=== PATIENT | female | born 1940 | race Caucasian/White ===

== ENCOUNTER → 2017-05-29 09:45 | Outpatient (CLI) | payer MEDICARE, SELFPAY ==
--- NOTE | 2017-05-29 09:52 | MM_ITS ---
MM Dig screening mamm BI w/CAD . ORDERING PHYSICIAN : Lissett Hung COMPARISON:.: May 2016,, April TECHNIQUE: bilateral mammogram.: Standard CC and MLO images were obtained. R2 CAD reviewed. HISTORY: ITS.REASON: Screening mammogram. No new complaints. No hormones. . Previous percutaneous biopsy deep lateral right breast benign results. Noncontributory family history PATIENT AGE: 77 years GENDER: Female FINDINGS . Dense Breasts for this age patient. This does decrease sensitivity of mammography the fibrolinear elements are most evident towards the superior breast. Actually. There seems to be almost slight diffuse increased density but this may merely reflect technique today. No history of exogenous hormones noted on provided history. . RIGHT BREAST: No significant new findings in this dense slight inhomogeneous breast 2 small metallic markers at the deep right breast from previous percutaneous biopsy are again noted LEFT BREAST:. There is a area of slight increased density at the superior left breast labeled X. Is highlighted by CAD as well as noted on our visual review. This warrants additional spot images at the 12:00 left breast to further evaluate. Cc and MLO and and 90 degrees spot views recommended.. Ultrasound also suggested to further evaluate . IMPRESSION: LEFT BREAST: Additional views left breast recommended Slight additional density superior left breast with question of mild architectural irregularity. Appearance could be merely due to to overlapping shadow in this dense breast, but would recommend patient return for additional spot views of this area along with ultrasound to further evaluate. Dense breasts for this age patient, which decreases sensitivity mammography.. (No exogenous hormones listed) Right breast. Stable moderately dense inhomogeneous breast. Follow-up in one on the right adequate . BI-RADS Category: 0 Need Additional Imaging Evaluaiton . RECOMMENDED FOLLOW-UP: IMM - IMMEDIATE FOLLOW-UP RECOMMENDED Spot views left breast recommended with ultrasound suggested (A letter has been sent to the patient regarding results of the study.)
== END ==
PROVIDERS: Family Provider Nurse Practitioner; PCP Nurse Practitioner; Visit Provider Nurse Practitioner
DX: Z12.31 Encounter for screening mammogram for malignant neoplasm of breast (principal)
CPT/HCPCS: 77067

== ENCOUNTER → 2017-06-12 13:20 | Outpatient (CLI) | payer MEDICARE, SELFPAY ==
--- NOTE | 2017-06-12 13:30 | MM_ITS ---
MM Dig mamm DX unilat LT CAD, US breast LT complete COMPARISON: 220 10/17 and 05/17/2016 INDICATION: Follow-up abnormal mammogram ORDERING PHYSICIAN: Lissett Hung PATIENT AGE: 77 years TECHNIQUE: Spot compression views and left breast ultrasound FINDINGS: The area of previously described asymmetric density does appear to compress out with no discrete mass evident. There is dense fibroglandular tissue. Left breast ultrasound: General survey performed of the left breast shows no suspicious lesions. No cysts or masses evident. Unremarkable axilla IMPRESSION: No evidence of malignancy. No discrete lesions evident BI-RADS Category: 2 Benign Finding(s) RECOMMENDED FOLLOW-UP: 1YR - 1 YEAR FOLLOW-UP. Recommend correlation with physical exam in this patient with dense fibroglandular tissue. (A letter has been sent to the patient regarding results of the study.)
== END ==
PROVIDERS: Family Provider Nurse Practitioner; PCP Nurse Practitioner; Visit Provider Nurse Practitioner
DX: R92.8 Other abnormal and inconclusive findings on diagnostic imaging of breast (principal)
CPT/HCPCS: 76641; 77065

== ENCOUNTER → 2017-08-16 12:41 | Outpatient (CLI) | payer MEDICARE, SELFPAY ==
--- NOTE | 2017-08-16 12:47 | MR_ITS ---
MR knee LT wo con HISTORY: Worsening left knee pain ITS.REASON: LEFT LATERAL KNEE PAIN ORDERING PHYSICIAN: Lissett uHng PATIENT AGE: 77 years Comparison: 10/18/2016 TECHNIQUE: Standard multiplanar multiecho sequences are performed without contrast. FINDINGS: The cruciate ligaments, collateral ligaments, patellar tendon, and quadriceps tendon are intact. There is linear increased T2 signal involving the posterior horn of the medial meniscus which extends to the tibial articulating surface. This however is seen only on one image and does not meet strict MRI criteria for meniscal tear. The medial meniscus is somewhat smaller than expected and extruded medially. There is some mild artifact also on the coronal images obtained. Heart of the medial meniscus. The lateral meniscus has an unremarkable appearance. There is mild thinning of the patellar cartilage. There is decrease in the knee joint space medially and laterally with mild osteophyte formation consistent with osteoarthritis with also involvement of the patellofemoral joint. No osteonecrosis apparent. No subarticular cyst. There is a small amount of fluid in the knee joint. No fracture or bone bruise. IMPRESSION: 1. Osteoarthritis of the knee involving all 3 compartments 2. Linear increased T2 signal involving the posterior horn of medial meniscus however only on one image and does not meet the strict MRI criteria for meniscal tear.
== END ==
PROVIDERS: Family Provider Nurse Practitioner; PCP Nurse Practitioner; Visit Provider Nurse Practitioner
DX: M25.562 Pain in left knee (principal)
CPT/HCPCS: 73721

== ENCOUNTER → 2017-09-06 13:09 | Outpatient (CLI) | payer MEDICARE, SELFPAY ==
--- NOTE | 2017-09-06 13:21 | XR_ITS ---
XR knee LT 4V HISTORY: ITS.REASON: left knee pain ORDERING PHYSICIAN: Eduardo Rao MD PATIENT AGE: 77 years COMPARISON: 10/18/2016 FINDINGS: Osteoarthritic changes involving the medial compartment which are mild in nature probably not significantly changed considering weightbearing and nonweightbearing exam comparison to the previous study. Minimal osteoarthritic changes involve the patellofemoral joint as well. No acute fracture or dislocation. No lytic or blastic change. IMPRESSION: Mild osteoarthritis of the left knee
--- NOTE | 2017-09-06 15:55 | XR_ITS ---
XR hip LT 2-3V w/pelvis HISTORY: ITS.REASON: left hip pain ORDERING PHYSICIAN: Eduardo Rao MD PATIENT AGE: 77 years COMPARISON: None FINDINGS: There are severe osteoarthritic changes of the left tibia with loss of joint space and subarticular cystic change. There is collapse of the femoral head with dysplastic changes and deformity. Also suspect an underlying degree of avascular necrosis. No acute fracture or dislocation. IMPRESSION: Severe osteoarthritis of the left hip with collapse of the femoral head expected underlying avascular necrosis and subarticular cystic change with dysplastic change of the femoral head
--- NOTE | 2017-09-06 15:55 | XR_ITS ---
XR hip RT 2-3V w/pelvis HISTORY: ITS.REASON: right hip pain ORDERING PHYSICIAN: Eduardo Rao MD PATIENT AGE: 77 years COMPARISON: None FINDINGS: Severe osteoarthritic changes are present with subarticular cystic changes of the dural head with mild flattening of the femoral head and mild lateral subluxation of the femoral head. Subarticular cystic change also noted involving the acetabular roof. No acute fracture or dislocation. IMPRESSION: Severe osteoarthritis of the right hip with subarticular cystic change with dysplastic changes the femoral head with mild lateral subluxation of the femoral head
== END ==
PROVIDERS: PCP Nurse Practitioner; Visit Provider Orthopaedic Surgery
DX: M25.562 Pain in left knee (principal); M25.551 Pain in right hip; M25.552 Pain in left hip
CPT/HCPCS: 73502; 73564

== ENCOUNTER → 2017-09-13 16:09 | Outpatient (CLI) | payer MEDICARE, SELFPAY ==
[2017-09-13 16:13] LABS: Microscopic, Urine URINE MICROSCOPIC (MICROSCOPIC)
[2017-09-13 17:20] LABS: Basophils # 0.1 K/mm3 (0-0.2); Basophils % 1.6 % (0.1-2.0); Eosinophils # 0.3 K/mm3 (0.0-0.4); Eosinophils % 3.8 % (0.1-12.0); Hemoglobin 13.7 g/dL (12.2-16.2); Lymphocytes # 2.7 K/mm3 (0.7-4.5); Lymphocytes % 35.9 K/mm3 (10-50); Mean Corpuscular HGB Conc 30.5 g/dL (31.8-35.4); Mean Corpuscular Hemoglobin 27.4 pg (27.0-31.2); Mean Corpuscular Volume 89.9 fl (81-99); Mean Platelet Volume 7.3 fl (7.4-10.4); Monocytes # 0.5 K/mm3 (0.1-1.0); Neutrophils % 52.5 % (37.0-80.0); Platelet Count 476 K/mm3 (142-424); Red Cell Distribution Width 12.5 % (11.5-17.5); White Blood Count 7.5 K/mm3 (4.8-10.8)
[2017-09-13 18:41] LABS: Appearance,Urine CLEAR (Clear); Bilirubin,Urine Negative (Negative); Blood, Urine Negative (Negative); Color,Urine YELLOW (Yellow); Glucose,Urine (UA) Negative (Negative); Ketones,Urine Negative (Negative); Leukocyte Esterase,Urine Negative (Negative); Nitrate,Urine Negative (Negative); Protein,Urine Negative (Negative); Urobilinogen,Urine 0.2 EU/dl (0.2)
[2017-09-13 18:46] LABS: Alanine Aminotransferase 16 U/L (12-78); Albumin Level 4.2 gm/dL (3.4-5.0); Alkaline Phosphatase 145 U/L (46-116); Anion Gap 14.7 mEq/L (5-15); Aspartate Amino Transferase 18 U/L (15-37); Bilirubin,Total 0.4 mg/dL (0.2-1.0); Blood Urea Nitrogen 26 mg/dL (7-18); Calcium 10.8 mg/dL (8.5-10.1); Carbon Dioxide 29 mmol/L (21.0-32.0); Chloride 98 mmol/L (98-107); Creatinine,Serum 1.13 mg/dL (0.55-1.02); Estimated Glomerular Filt Rate 47 ml/min (>60); GFR (African American) 57 ML/MIN (>60); Globulin 4.3 gm/dl (1.3-3.2); Glucose 88 mg/dL (74-106); Potassium 4.7 mmoL/L (3.5-5.1); Sodium 137 mmol/L (136-145); Total Protein,Serum 8.5 gm/dL (6.4-8.2)
[2017-09-13 19:34] LABS: Bacteria,Urine Trace /lpf; WBC,Urine Occasional #/hpf (0-3)
[2017-09-13 19:35] LABS: Hyaline Casts,Urine Occasional #/lpf (0)
== END ==
PROVIDERS: Visit Provider Orthopaedic Surgery
DX: M16.12 Unilateral primary osteoarthritis, left hip (principal); Z01.818 Encounter for other preprocedural examination
CPT/HCPCS: 36415; 80053; 81001; 85025; 86850; 93005

== ENCOUNTER → 2017-09-19 15:00 | Outpatient (CLI) | payer MEDICARE, SELFPAY ==
--- NOTE | 2017-09-19 15:04 | XR_ITS ---
XR chest 2V HISTORY: Shortness of air, smoker ITS.REASON: pre op ORDERING PHYSICIAN: Eduardo Rao MD PATIENT AGE: 77 years COMPARISON: None FINDINGS: Unremarkable cardiovascular structures. There is hyperinflation consistent with COPD with attenuation of the peripheral pulmonary vessels. Atelectatic or fibrotic changes present in the left lower lobe. Mild adjacent changes right shoulder. IMPRESSION: COPD with minimal left basilar atelectasis or fibrosis, no acute finding
--- NOTE | 2017-09-19 15:04 | CT_ITS ---
CT hip LT wo con INDICATION: Left hip pain, severe osteoarthritis with deformity ITS.REASON: pre operative planning ORDERING PHYSICIAN: Eduardo Rao MD PATIENT AGE: 77 years COMPARISON: 09/06/2017 TECHNIQUE: Axial images are obtained without contrast. Sagittal and coronal reformatted images are reviewed as well. All CT scans at the facility use one or more dose reduction, viz: automated exposure control; ma/kV adjustment per patient size (including targeted exams where dose is matched to indication; i.e. head); or iterative reconstruction technique. FINDINGS: There is severe loss of the joint space with osteosclerosis of the femoral head and acetabulum with subarticular cystic changes of the acetabulum and deformity of the femoral head with prominent osteophytes of the acetabulum consistent with grade 4 osteoarthritis of the left hip. There is marked thinning of the acetabular wall medially. No obvious fracture or dislocation. There is some increased soft tissue density along the inferior aspect of the hip joint which may be related to effusion or capsular thickening dysplastic changes are present of the femoral head. IMPRESSION: 1. Grade 4 osteoarthritis of the left hip with marked joint space narrowing, sclerosis and periarticular cyst formation along with deformity of the femoral head and acetabulum with prominent osteophytes of the acetabulum 2. There is associated severe thinning of the medial wall of the acetabulum but no obvious fracture. 3. Increased soft tissue density along the inferior aspect of the hip joint which may relate to fluid or capsular thickening
== END ==
PROVIDERS: Family Provider Nurse Practitioner; PCP Nurse Practitioner; Visit Provider Orthopaedic Surgery
DX: Z01.818 Encounter for other preprocedural examination (principal); M16.12 Unilateral primary osteoarthritis, left hip
CPT/HCPCS: 71046; 73700

== ENCOUNTER 2017-09-24 06:40 | Inpatient (IN) ==
--- NOTE | 2017-09-24 13:27 | Progress Note ---
[facility] Anesthesia Checklist - Patient Identification Patient Identification: Arm Band, Verbal (Name & ) - Structural Data Admitted From: Home Planned Operative Procedure/s: pattie Consent for Planned Operative Procedure(s) Verified: Yes Verified Documents: Surgical Consent, History and Physical - NPO Status Verified Time NPO: 00:00 - Chart Verification Results Verified: CBC, BMP - Additional verifications Patient : No Anesthesia Reactions: No Hx Blood Transfusions: No Blood Transfusion Reaction: No Cephalosporin Allergy: No Previous Colonoscopy: No - Cardiovascular Assessment Heart Sounds: S1 & S2 Pulse Strength: Baseline Pulse Rhythm: Regular Peripheral Edema: No - Airway Assessment C-Spine Mobility Assessed: Yes TMJ Mobility Assessed: Yes Dentition: Good Dentition - Neurological Assessment Level of Consciousness: Awake, Alert, Appropriate Hx Seizures: No Numbness or tingling in extremities: No - Anesthesia Plan Anesthesia Risk discussed: Yes Anesthesia Plan: Verified ASA Class: II Anesthesia Type: General [facility] Anesthesia HX I have reviewed the patient's past medical history: Yes Medical History: Reports:: Hypertension Denies:: Cancer, Diabetes Mellitus Type 1, Diabetes Mellitus Type 2, Internal Pacemaker, MRSA, Seizures Other Medical History: Reports: Arthritis, Cataracts, Hypothyroidism. Denies: Blood Transfusion Reaction Laterality Cases: Bilateral: Breast Biopsy, Cataract Other Surgeries: Yes: Cholecystectomy, Hysterectomy-Partial. No: Pacemaker Amputation: No Fractures: No *Family Hx:: Heart Attack, Hyperlipidemia, Hypertension
--- NOTE | 2017-09-24 13:29 | Progress Note ---
[facility] Anesthesia Record Part I Intake, IV Amount: 1,500 Estimated blood loss (mL): 300 Urine output (mL): 200 Blood Products used (#): none Blood Pressure: 129/65 SaO2: 97 Pulse Rate: 66 Respiratory Rate: 18 Temperature: 97.5 F Patient is:: Drowsy, Stable Stable to PACU at:: 13:21
--- NOTE | 2017-09-24 13:30 | Progress Note ---
[facility] Anesthesia Record Part II Discharge Time: 14:01 Destination: Medical Surgical Department PACU nurse assessment reviewed?: Yes Patient Condition:: Good Anesthesia Complications:: None
--- NOTE | 2017-09-24 14:19 | Operative Note ---
Date of procedure: 09/24/17 Pre-op Diagnosis:: 1. Severe end-stage degenerative joint disease, LEFT hip 2. Protrusio acetabulum, LEFT hip Post-op Diagnosis:: 1. Severe end-stage degenerative joint disease, LEFT hip 2. Protrusio acetabulum, LEFT hip Procedure performed:: 1. Primary uncemented total hip arthroplasty, LEFT hip 2. Autologous impaction bone grafting acetabulum, LEFT hip Surgeon:: Eduardo Rao MD Scenario Writer(s):: Dr. Corado; Dr. Corado's assistance was needed and required given the difficulty and complexity of the procedure. ASSISTANT PROFESSOR OF PSYCHOLOGY:: Isak Cox Anesthesia: GETA, spinal Estimated blood loss (mL): 300 Clinical Note:: Patient is a 77-year-old female with severe end-stage bilateral hip arthritis with more severe changes in her left hip with marked destruction of the joint surfaces on x-ray. A preoperative left hip CT scan showed severe joint destruction with thinning of the medial wall and mild protrusio acetabuli of the left hip. Symptomatically she has has been having significant left thigh and left knee pain for several months but very little hip pain. In fact I have seen her for the first time in the office few weeks ago following referral by her primary care physician for her left knee pain. Following evaluation at that time we have noticed that she has severe deformities and stiffness in both hip joints secondary to advanced degenerative arthritis and the left knee pain is in fact referred pain from her left hip arthritis. Consequently she had very limited mobility of her hip joints and could not even lie down flat. She mainly has pain over the anterolateral lateral aspect of the left knee and lower left thigh. She has been taking tramadol and as needed NSAIDs without much benefit. She also takes hemp oil to help her with sleep. She says he can hardly walk a few yards without support and had to stop frequently because of the thigh/knee pain and stiffness in her hips. She reports sleep disturbance and difficulty with activities of daily living including caring for her feet, dressing and undressing and putting socks and shoes on. She says she cannot lie flat on the bed because of the severe stiffness in both hip joints. Her symptoms are worse in cold weather and also aggravated with walking, weightbearing and climbing stairs. She uses a cane and walker as needed to walk at home. Her mobility was restricted that she in fact came to the office in a wheelchair. The deformity and stiffness in her hip joints is such that she is a high risk for falls lately during her self if untreated. She reports some relief using walking aids and at the time of office evaluation was not able to walk without support. No history of any distal tingling or numbness. No history of any radicular symptoms. She also reported that her left leg feels shorter than the right. Following evaluation during her office visit, we have discussed the management options for her with the patient and her family. Given the pain, stiffness, severe arthritis and destruction of the joint surfaces, I have recommended a left total hip arthroplasty to begin with. Following review of the CT scan, I have also discussed about autologous impaction bone grafting for the acetabulum. Following consultation with the family members patient decided to proceed with surgery. The most suitable option for her left hip at this stage would be a total hip arthroplasty which is clinically indicated as well as necessary to effectively manage her left hip to relieve pain and the help prevent the disability and risk of falls. It is very likely that she would also need a right total hip arthroplasty in the not so distant future. Operative findings:: Intraoperatively, end-stage osteoarthritis of the hip joint was noted. The femoral head was grossly arthritic and misshapen and osteophytes were noted on both the acetabulum and the femoral head. There was mild degree of protrusio acetabulum and the hip joint could not be dislocated before osteotomizing the femoral neck. We in fact had to remove the femoral head piecemeal after osteotomizing the femoral neck. There was severe dysplasia/erosion of the acetabulum with central and superior migration of the femoral head. There was destruction and thinning of the medial wall but the medial cortex was intact. There were multiple acetabular cysts. The femoral head was markedly arthritic with sclerosis, subchondral cysts and the articular surface was noted to be markedly eroded. The capsule was thickened and extensive adhesions were noted. The hip joint was very stiff and range of motion was markedly decreased. The overall bone quality was good for her age. Operative note:: On the day of the procedure the patient and family were met in the preoperative area and the patient was positively identified. A physical examination was performed and documented. The operative site was appropriately marked and initialed by me. I again reviewed the diagnosis, natural history and management options in detail including both nonsurgical and surgical. We discussed the proposed surgery, risks and benefits and alternatives in detail. I also discussed the CT scan findings with the patient and her family. Given the degree of acetabular destruction with protrusio acetabulum, I told the patient and her family that, I am planning on performing impaction bone grafting of the acetabulum. I have told him that we will be using the autologous graft obtained from from the reamings as well as from the femoral head and neck. The complications discussed include but are not limited to infection, injury to nerves, blood vessels and tendons, perforation of the cortices, DVT and PE, fracture, limb length inequality, dislocation, implant malpositioning, implant failure, squeaking, loosening, acetabular wear, osteolysis, periprosthetic femur fracture, heterotopic ossification, abductor weakness and limp, incomplete relief of pain, likely need for further surgery in future including revision, anesthetic complications including heart attack, stroke and even . We also discussed the postoperative recovery and rehabilitation. Patient understood the risks, agreed to proceed with surgery, signed the consent form and no guarantees or assurances were given or implied. The patient was brought to the operating room and a long-acting spinal and general anesthesia was administered by the flight deck officer. The patient was then positioned in the RIGHT lateral decubitus position with the LEFT hip facing up. We used Wixon hip positioner for this. All the bony prominences were appropriately padded. The LEFT hip was then prepped with isopropyl alcohol followed by chlorhexidine and draped in the usual sterile fashion. The entire operative team wore isolation suits and the Operating Room traffic was controlled. The skin incision was marked for a posterior approach to the hip joint. The perineum and the operative site were sealed off with Ioban drape. A preprocedure timeout was performed as per hospital protocol identifying the patient, correct surgery and correct site. Administration of 2 g of prophylactic IV Ancef was confirmed with the anesthetic team. Before completion of the procedure one more gram of IV Ancef was administered as the operating time was over 2 hours. We have also administered 1g of IV tranexamic acid just before the incision and another gram at the time of wound closure, to reduce the perioperative bleeding. A posterior approach was used to the LEFT hip joint. The skin incision was made centering over the posterior part of the greater trochanter extending posteriorly in a curved fashion across the buttock. An electrocautery was used for hemostasis. The dissection was carried through the subcutaneous tissue down to the fascia jana. The fascia jana and gluteus fascia were split in line with the skin incision and a Charnley retractor was placed. The trochanteric bursa was then removed with blunt dissection. The sciatic nerve was palpated and kept out of harm's way throughout the rest of the procedure. The hip joint was internally rotated and the fat over the short external rotators was cleared with a sponge. The short external rotator muscles were identified, tag stitches were placed near their insertion and they were divided close to the trochanter with electrocautery. This exposed the joint capsule which was opened in a T-shaped incision after tag stitches were placed to both the leaves of the capsule. Given the marked destruction of the femoral head and extensive osteophyte formation, we could not dislocate the hip joint at this stage. Therefore the neck was osteotomized with an oscillating saw. The femoral cutting guide was used to demarcate the appropriate level of the neck cut. We still could not remove remove the femoral head from the acetabulum. Therefore, we osteotomized the femoral head into multiple pieces and removed it piecemeal. Extensive osteophyte formation was noted around the femoral head and acetabulum. The femoral head which was removed piecemeal was saved on the back table for later use for grafting of the acetabulum. We then placed anterior and posterior Cobra retractors and proceeded to prepare the acetabulum. The soft tissue contents of the acetabulum including the ligamentum teres and the labrum were removed. We noticed superior and medial erosion of the acetabulum and multiple cyst formation. The acetabular cysts were curetted out. We then proceeded to reaming the acetabulum. Given the thinning of the medial wall, we decided not to medialize the acetabulum anymore and started our reaming with a size 50 reamer. We then proceeded with reaming up to size 54 for a size 54 revision acetabular shell. We choose the revision acetabular shell for superior bone integration and availability of multiple screw hole options. Following appropriate reaming, we used a size 54 cup trial which could be seated firmly and was noted to be stable. We then removed the trial shell and proceeded with bone grafting of the acetabulum. For this purpose, we used the acetabular reamings as well as cancellous bone graft obtained from the femoral head and neck. This was morselized on the back table and placed into the acetabular cavity and impacted into place with reverse reaming using a 53 mm reamer. We then placed a size 54 definitive acetabular revision shell at approximately 45 degrees inclination and 15 degrees of anteversion. The press-fit fixation was quite solid; however, we have decided to supplement the fixation of the cup with screws. Using the flexible drill, we placed a total of 3, 6.5 mm screws into the posterior superior and posterior inferior quadrants. We then placed the metal liner into the shell and impacted it into place. We then placed a Ray-Anyi gauze in the acetabulum and proceeded to prepare the proximal femur. We had to proceed carefully with this part of the procedure given the marked stiffness of her hip joint. After removing the soft tissue from the medial aspect of the greater trochanter, a box osteotome was used to remove the bone from the proximal femur. A canal entry reamer was then used to open the femoral canal paying close attention to keep the reamer in a lateral position. Next we used the lateralizing drill. Next we performed femoral broaching starting with a small broach, making sure to lateralize the placement and maintain 15-20 degrees of femoral anteversion. The broaching was continued sequentially up to size 5 broach. We found this to be a very good fit without any rocking. We then performed a trial reduction using a size 5 broach, 132 angle neck and 0 mm head. We could not reduce the hip with these trials. Then we tried with a -4 mm head but still could not reduce the hip. We again tried with 127 ankle neck and -4 mm head. Even with these trials, the hip could not be reduced. At this stage, we decided to shorten the neck by few millimeters. We recut the femoral neck a couple of millimeters down and re-broached with the size 5 broach. We then trialed with a 127 ankle neck -4 mm head; with these trials in place, we could reduce the hip into place. The hip was then taken through range of motion and tested in adduction, internal and external rotation as well as with a shuck and posteriorly directed force on a flexed hip. We placed the hip at 90 degrees of flexion and then we could internally rotate to 45 degrees with no evidence of instability. Also in the sleep position of approximately 20 degrees of adduction and internal rotation of 40 degrees the hip was still stable. We also noted that the limb lengths were equal with these components. As the hip was noted to be very stable with these trial components throughout the range of motion, we decided on this as our final construct. We then finished the preparation of the proximal femur with a calcar reamer. Next the trial components were removed and the femoral canal was irrigated with the pulse lavage and suctioned out. The definitive femoral stem was then placed and seated to the appropriate level. This gave us a very good fit without any play whatsoever. We then irrigated and dried the Boswell taper and placed the definitive MDM femoral head assembly on the stem and tapped into place. The Ray- Anyi gauze was removed from the acetabulum and hip joint irrigated with the pulse lavage. The hip was then reduced and taken through range of motion and noted to be very stable. The limb length was also well corrected. The hip joint was then soaked with dilute Betadine (0.35 percent) solution for 3 minutes followed by suctioning of the solution and pulsatile lavage with the 1 L of normal saline. At this point, I also injected the capsule and soft tissue with the local anesthetic cocktail (0.5 percent bupivacaine 200 mg +10 mg of morphine +600 g of epinephrine +750 mg of cefuroxime diluted in normal saline to make up a total volume of 120 mL). The hip joint was again thoroughly irrigated with the pulse lavage and good hemostasis was confirmed before proceeding with wound closure. The capsule was closed with #1 Vicryl sutures followed by the reattachment of the external rotators to the greater trochanter with #1 Vicryl sutures. Next the fascia jana and gluteus fascia were closed with #1 Vicryl sutures. The wound was then finally irrigated with pulse lavage and suctioned dry. Next the subcutaneous tissue was closed with 2-0 Vicryl sutures. The skin was closed with subcuticular 4-0 Monocryl sutures, Dermabond and Steri-Strips. Sterile dressings were applied consisting of Xeroform, 4 x 4 and ABDs and secured in place with adhesive tape. No drains were placed. The patient was then transferred from the operating table onto the bed. The leg lengths were again checked in supine position and noted to be equal. An abduction foam was placed between the legs. The patient was then reversed from the anesthetic and transported to the postoperative recovery area in a stable condition. Patient tolerated the procedure well and there were no immediate complications. The swab, needle and instrument counts were correct according to the scrub team at the end of the procedure. Portable x-rays of the pelvis AP view and lateral view of the LEFT hip were obtained in the recovery area which showed satisfactory placement of the components and no evident complications. Postoperatively, institute and continue standard precautions for a posterior hip approach. Patient can be mobilized weightbearing as tolerated with the help of physical therapy and commence standard physical therapy for a posterior approach primary total hip arthroplasty on the first postoperative day. Implant: The following Vostu implants were used- Julianna Accolade 2 press-fit femoral stem, 127 degree neck angle, size 5 Trident titanium hemispherical shell, 54 mm 42 mm inner diameter MDM cementless liner Mosque ADM/MDM X3 insert 28/48, size 42 E Biolox delta ceramic V 40 femoral head, size 28 mm x -4 mm neck length Mosque gap plate screws (3)- 6.5 mm x 20 mm 2, 6.5 mm x 25 mm 1 Industry retail sales representative: Prosper Bautista from [employer]. Condition: stable Disposition: floor Specimens:: None Complications:: None
--- NOTE | 2017-09-24 15:08 | Pharmacy Consult Notes ---
[facility] Pharmacy VTE Monitoring - Patient Demographics Admission date: 09/24/17 Report Date: 09/24/17 Time: 15:07 Allergies/Adverse Reactions: Patient Allergies No Known Allergies Allergy (Verified 09/06/17 14:05) Height: 1.6 m Weight: 60.951 kg - VTE Risk Was VTE Risk Assessment Performed: Yes VTE Score: 4 VTE Risk Level: Low Risk - Prophylaxis VTE Prophylaxis Ordered?: Yes Types of VTE Prophylaxis: IPCS Knee High Location of Applied Device: Bilateral Lower Extremeties - VTE Diagnosis Confirmed Treatment or plan recommended: Continue Current Treatment
--- NOTE | 2017-09-24 17:06 | Consult Report ---
*Admission Date: 09/24/17 *Chief complaint: Medical management, postop right hip replacement *History of present illness: 77-year-old female who is postop left hip replacement and I have been consulted for medical management of patient's hypertension, hypothyroid. Currently she is doing well postoperatively and family has pointed out that the patient has been talking nonstop since having surgery which they believe is a side effect of some of the medications she is received either during or after surgery. [facility] [place] History I have reviewed the patient's past medical history: Yes Medical History: Reports:: Hypertension Denies:: Cancer, Diabetes Mellitus Type 1, Diabetes Mellitus Type 2, Internal Pacemaker, MRSA, Seizures Other Medical History: Reports: Arthritis, Cataracts, Hypothyroidism. Denies: Blood Transfusion Reaction Laterality Cases: Bilateral: Breast Biopsy, Cataract Other Surgeries: Yes: Cholecystectomy, Hysterectomy-Partial. No: Pacemaker Amputation: No Fractures: No - *Social History Educational Level: Attended Grade School Smoking Status: Current some day smoker Tobacco Type: cigarettes Alcohol Intake: never Occupational Status: retired Housing: house - Psychiatric History Expresses thoughts of harming self/others: None Suicide Plan Description: No Plan *Family Hx:: Heart Attack, Hyperlipidemia, Hypertension Review of Systems - Review of Systems Review of systems:: pertinent systems reviewed and negative unless documented below Meds Home Medications Medication Instructions Recorded Confirmed Type aspirin 325 mg tablet 325 mg PO BID 09/06/17 09/24/17 History calcium carbonate 500 mg (1,250 1 tab PO BID 09/06/17 09/24/17 History mg)-vitamin D3 200 unit tablet levothyroxine 88 mcg capsule 88 mcg PO DAILY 09/06/17 09/24/17 History lisinopril 5 mg tablet 5 mg PO DAILY 09/06/17 09/24/17 History tramadol 50 mg tablet 50 mg PO Q6H 09/06/17 09/24/17 History triamterene 37.5 1 tab PO DAILY 09/06/17 09/24/17 History mg-hydrochlorothiazide 25 mg tablet Ferrous Sulfate 325 mg PO BID 09/21/17 09/24/17 History Allergies Allergy/AdvReac Type Severity Reaction Status Date / Time No Known Allergies Allergy Verified 09/06/17 14:05 Exam Vital signs and Labs for Last 24 Hours: Temp Pulse Resp BP Pulse Ox 98.0 F 68 18 93/54 94 L 09/24/17 16:15 09/24/17 16:15 09/24/17 16:15 09/24/17 16:15 09/24/17 16:15 Laboratory Results - last 24 hr 09/24/17 09:30: Urine Color Yellow, Urine Appearance Clear, Urine pH 7.0, Ur Specific [place] 1.010, Urine Protein Negative, Urine Glucose (UA) Negative, Urine Ketones Negative, Urine Blood Negative, Urine Nitrate Negative, Urine Bilirubin Negative, Urine Urobilinogen 0.2, Ur Leukocyte Esterase Negative, Urine WBC Occasional, Ur Squamous Epith Cells Occasional I & O for Last 24 hours: Intake & Output 09/22/17 09/23/17 09/24/17 09/25/17 11:59 11:59 11:59 11:59 Intake Total 1859 Balance 1859 Weight 140 lb 134 lb 6 oz - Constitutional no acute distress - *Routine HEENT Exam Head: Present: normocephalic Eye: Present: PERRL ENT: Present: mucous membranes moist - *Routine Respiratory Exam Present: CTA bilaterally - *Routine Cardiovascular Exam Present: RRR. Absent: murmur, gallop Internal Medicine - CN: Reslt - Labs CBC & Chem 7: 09/26/17 05:44 09/26/17 05:44 Labs: Urine 09/24/17 Range/Units 09:30 Urine Color Yellow (Yellow) Urine Appearance Clear (Clear) Urine pH 7.0 (5.0-8.5) Ur Specific [place] 1.010 (1.005-1.030) Urine Protein Negative (Negative) Urine Glucose (UA) Negative (Negative) Assessment and Plan (1) Hypertension Current visit: Yes Status: Acute Category: Medical Code(s): I10 - Essential (primary) hypertension (2) Hypothyroidism Current visit: Yes Status: Acute Category: Medical Code(s): E03.9 - Hypothyroidism, unspecified (3) History of total left hip arthroplasty Current visit: Yes Status: Acute Category: Surgical Code(s): Z96.642 - Presence of left artificial hip joint (4) Primary osteoarthritis of left hip Current visit: Yes Status: Chronic Category: Medical Code(s): M16.12 - Unilateral primary osteoarthritis, left hip - Assessment and plan all Dx Assessment and Plan for all problems:: 1. Postoperative care per Dr. Rao's instructions 2. Home medications
[2017-09-25 06:05] LABS: Basophils # 0.1 K/mm3 (0-0.2); Basophils % 0.6 % (0.1-2.0); Eosinophils # 0.1 K/mm3 (0.0-0.4); Eosinophils % 1.5 % (0.1-12.0); Hematocrit 32.3 % (37.0-47.0); Hemoglobin 9.9 g/dL (12.2-16.2); Lymphocytes # 1.8 K/mm3 (0.7-4.5); Lymphocytes % 24.1 K/mm3 (10-50); Mean Corpuscular HGB Conc 30.5 g/dL (31.8-35.4); Mean Corpuscular Hemoglobin 27.6 pg (27.0-31.2); Mean Corpuscular Volume 90.4 fl (81-99); Mean Platelet Volume 6.9 fl (7.4-10.4); Monocytes # 0.5 K/mm3 (0.1-1.0); Monocytes % 6.5 % (1.7-9.3); Neutrophils % 67.3 % (37.0-80.0); Platelet Count 285 K/mm3 (142-424); Red Blood Count 3.58 M/mm3 (4.20-5.40); Red Cell Distribution Width 12.8 % (11.5-17.5); White Blood Count 7.4 K/mm3 (4.8-10.8)
[2017-09-25 06:13] LABS: Anion Gap 9.3 mEq/L (5-15); Calcium 8.8 mg/dL (8.5-10.1); Potassium 4.3 mmoL/L (3.5-5.1)
--- NOTE | 2017-09-25 11:01 | Progress Note ---
Subjective Date: 09/08/17 Time: 09:30 Principal diagnosis: Status post total hip arthroplasty, left Interval history: Patient is status post LEFT total hip arthroplasty post op day #1. Patient is sitting out in the chair. Says is doing well and reports no problems. Patient has minimal pain and says it's well-controlled with medication. No history of any nausea or vomiting. No history of any cough, chest pain, shortness of breath or palpitations. Patient says she is eating and drinking well. No history of any distal tingling or numbness. PN: Obj Ex Vital signs: Temp Pulse Resp BP Pulse Ox 98.5 F 77 18 105/56 98 09/25/17 07:52 09/25/17 07:52 09/25/17 07:52 09/25/17 07:52 09/25/17 08:55 Narrative: Laboratory Results - last 24 hr 09/24/17 09:30: Urine Color Yellow, Urine Appearance Clear, Urine pH 7.0, Ur Specific [place] 1.010, Urine Protein Negative, Urine Glucose (UA) Negative, Urine Ketones Negative, Urine Blood Negative, Urine Nitrate Negative, Urine Bilirubin Negative, Urine Urobilinogen 0.2, Ur Leukocyte Esterase Negative, Urine WBC Occasional, Ur Squamous Epith Cells Occasional 09/25/17 05:40: WBC 7.4, RBC 3.58 L, Hgb 9.9 L, Hct 32.3 L, MCV 90.4, MCH 27.6, MCHC 30.5 L, RDW 12.8, Plt Count 285, MPV 6.9 L, Neut % (Auto) 67.3, Lymph % ( Auto) 24.1, [place] % (Auto) 6.5, Eos % (Auto) 1.5, Baso % (Auto) 0.6, Neut # (Auto ) 5.0, Lymph # (Auto) 1.8, [place] # (Auto) 0.5, Eos # (Auto) 0.1, Baso # (Auto) 0.1 09/25/17 05:40: Sodium 138, Potassium 4.3, Chloride 106, Carbon Dioxide 27, Anion Gap 9.3, BUN 24 H, Creatinine 1.55 H, Estimated Creat Clear 30, Estimated GFR 33 L, Est GFR ( Amer) 39 L, Glucose 102, Calcium 8.8 Intake & Output 09/22/17 09/23/17 09/24/17 09/25/17 11:59 11:59 11:59 11:59 Intake Total 5102 / 5102 Output Total 400 / 400 Balance 4702 / 4702 Weight 140 lb 134 lb 6 oz Exam General appearance: alert, active, awake, no acute distress Cardiovascular: regular rate & rhythm, normal peripheral pulses, Respiratory: clear to auscultation, normal breath sounds ABD: normal exam; soft and non tender Genitourinary: Catheter in situ. Neuro: alert, no deficit, oriented x 3 Psych: normal mood and affect On examination of the lower extremities the limb lengths are equal. Thigh and calf are soft and nontender. On examination of the LEFT hip the dressings are clean, dry and intact. No evidence of any infection or other complications noted. Distal pulses are 2+. Distal sensation is intact to light touch throughout. No motor deficits noted distally. Imaging: Postoperative check x-ray reviewed along with the radiologist report. The x-ray shows mixed left total hip arthroplasty components in satisfactory position, and alignment. No radiological complications noted. - Urinary Catheter Management Auguste Cath placed during this visit: yes Urethral indwelling: Yes Reason for continuing: Surgical procedure Insertion date: 09/24/17 Insertion time: 09:30 Progress Note: A&P (1) History of total left hip arthroplasty Status: Acute Current Visit: Yes (2) Primary osteoarthritis of left hip Status: Chronic Current Visit: Yes (3) Hypertension Status: Acute Current Visit: Yes (4) Hypothyroidism Status: Acute Current Visit: Yes (5) Osteoarthritis of right hip Status: Chronic Current Visit: Yes Assessment and Plan for All Diagnoses:: Post op patient plan: I reviewed the clinical and operative findings and procedure performed with the patient and her son. I have given them a copy of the postoperative hip x-ray. Patient is doing very well and reports no problems. Patient is mobilizing well weightbearing as tolerated on the LEFT side using a walker with help of physical therapy and to continue the same. Continue DVT prophylaxis. Continue abduction pillow when in bed and continue standard precautions for the posterior approach hip replacement. 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 Discontinue the urinary catheter. Case management consult regarding discharge planning. Medical management as per Dr. Goodson.
[2017-09-26 06:36] LABS: Basophils # 0.1 K/mm3 (0-0.2); Basophils % 0.7 % (0.1-2.0); Eosinophils # 0.2 K/mm3 (0.0-0.4); Eosinophils % 2.7 % (0.1-12.0); Hematocrit 31.5 % (37.0-47.0); Hemoglobin 9.8 g/dL (12.2-16.2); Lymphocytes # 1.3 K/mm3 (0.7-4.5); Lymphocytes % 17.1 K/mm3 (10-50); Mean Corpuscular HGB Conc 31.1 g/dL (31.8-35.4); Mean Corpuscular Hemoglobin 28.2 pg (27.0-31.2); Mean Corpuscular Volume 90.7 fl (81-99); Monocytes # 0.5 K/mm3 (0.1-1.0); Neutrophils # 5.8 K/mm3 (1.8-7.8); Neutrophils % 73.5 % (37.0-80.0); Platelet Count 292 K/mm3 (142-424); Red Blood Count 3.47 M/mm3 (4.20-5.40); Red Cell Distribution Width 12.8 % (11.5-17.5); White Blood Count 7.9 K/mm3 (4.8-10.8)
[2017-09-26 07:15] LABS: Calcium 9.1 mg/dL (8.5-10.1)
--- NOTE | 2017-09-26 07:30 | Progress Note ---
Internal Medicine - PN: Subj *Date: 09/26/17 *Time: 07:28 Interval history: Patient has no complaints this morning. Apparently yesterday evening family was concerned a possible strokelike symptoms due to some slurred speech what had occurred after she had received pain medication. Nursing assessment was performed and no abnormality was found. Patient received 10 mg of hydrocodone prior to onset of the symptoms. This morning her only complaint and worry is pain in her left hip. Exam Vital signs and Labs for Last 24 Hours: Temp Pulse Resp BP Pulse Ox 98.5 F 72 18 122/50 98 09/26/17 04:00 09/26/17 04:00 09/26/17 04:00 09/26/17 04:00 09/26/17 04:00 Laboratory Results - last 24 hr 09/26/17 05:44: WBC 7.9, RBC 3.47 L, Hgb 9.8 L, Hct 31.5 L, MCV 90.7, MCH 28.2, MCHC 31.1 L, RDW 12.8, Plt Count 292, MPV 7.0 L, Neut % (Auto) 73.5, Lymph % ( Auto) 17.1, [place] % (Auto) 6.0, Eos % (Auto) 2.7, Baso % (Auto) 0.7, Neut # (Auto ) 5.8, Lymph # (Auto) 1.3, [place] # (Auto) 0.5, Eos # (Auto) 0.2, Baso # (Auto) 0.1 09/26/17 05:44: Sodium 136, Potassium 4.0, Chloride 104, Carbon Dioxide 26, Anion Gap 10.0, BUN 27 H, Creatinine 1.15 H D, Estimated Creat Clear 40, Estimated GFR 46 L, Est GFR ( Amer) 56 L D, Glucose 102, Calcium 9.1 I & O for Last 24 hours: Intake & Output 09/23/17 09/24/17 09/25/17 09/26/17 11:59 11:59 11:59 11:59 Intake Total 5102 / 5102 660 / 660 Output Total 400 / 400 500 / 500 Balance 4702 / 4702 160 / 160 Weight 134 lb 6 oz Assessment and Plan (1) History of total left hip arthroplasty Current visit: Yes Status: Acute Category: Surgical Code(s): Z96.642 - Presence of left artificial hip joint (2) Primary osteoarthritis of left hip Current visit: Yes Status: Chronic Category: Medical Code(s): M16.12 - Unilateral primary osteoarthritis, left hip (3) Hypertension Current visit: Yes Status: Acute Category: Medical Code(s): I10 - Essential (primary) hypertension (4) Hypothyroidism Current visit: Yes Status: Acute Category: Medical Code(s): E03.9 - Hypothyroidism, unspecified (5) Osteoarthritis of right hip Current visit: Yes Status: Chronic Category: Medical Code(s): M16.11 - Unilateral primary osteoarthritis, right hip - Assessment and plan all Dx Assessment and Plan for all problems:: Patient is medically stable and from my standpoint can be discharged to [facility] I have addressed the patient's discharge medications and have written a prescription for hydrocodone 7.5 mg to be used every 4 hours as needed for pain. Patient will follow up with orthopedic surgeon per his instructions
--- NOTE | 2017-09-26 11:41 | Discharge Summary ---
General - General Admission date:: 09/24/17 Discharge date: 09/26/17 HPI HPI: Patient is a 77-year-old female with severe end-stage osteoarthritis of her LEFT hip and was admitted to the hospital following an uncomplicated primary left total hip arthroplasty with impaction bone grafting of the acetabulum on . She has been having progressively worsening left thigh and knee pain associated with severe stiffness of both hip joints. Her imaging showed severe degenerative arthritis of both hip joints with the left hip showing more advanced changes including gross destruction of the femoral head and acetabulum as well as mild degree of protrusio acetabulum. Patient also has advanced degenerative changes in the right hip but reports no pain in the right hip or right knee. However, both hip joints are markedly stiff with flexion contractures. Patient takes tramadol and as needed NSAIDs as well as home remedies like hemp oil without much benefit. She says she can hardly walk a few yards without support. She uses a walker to to mobilize indoors. She reports night pain and sleep disturbance as well as difficulty with activities of daily living including caring for her feet, dressing and undressing and putting socks and shoes on. She also reports severe stiffness in her left hip. She also reports that her symptoms are worse in cold weather and also aggravated with walking, weightbearing and climbing stairs. Patient reports some relief using walking aids and at the moment she mostly walks with a walker. No history of any distal tingling or numbness. No history of any radicular symptoms. She also reports that her left leg feels shorter than the right. Patient says she almost fell down a couple of times because of the hip stiffness but fortunately did not sustain any injuries or fractures. The hip arthritis is causing severe referred pain to the left thigh and knee and significant disability. The pain also is affecting her lifestyle, activities of daily living and significantly impacting her sleep. She is also at a high risk of falls from the hip arthritis. A total hip arthroplasty is indicated to relieve pain and the help prevent the disability and risk of falls. His past medical history includes hypertension and hypothyroidism. Hospital Course Hospital Course: Following uneventful left primary total hip arthroplasty patient was admitted to the inpatient lim and has progressed well. Her postoperative check x-ray was satisfactory with good alignment and fixation of the components. She was advised to ambulate weightbearing as tolerated on the LEFT side. Patient managed this very well using the walker. Her is pain is well controlled with oral analgesics. Her surgical incision is clean and dry without any active discharge or signs of infection. The distal neurovascular status is intact. No clinical evidence of DVT. Patient is eating and drinking well without any problems. Patient is medically stable at the time of discharge and was medically cleared for discharge by Dr. Goodson. The dressings were changed on the second postoperative day and the wound is healthy and healing well. No signs of any erythema, induration or discharge. Patient was restarted on her preoperative aspirin which is adequate for DVT prophylaxis after surgery. Patient was cleared for discharge by physical therapy. On the day of discharge, the wound is clean and dry. The patient's vital signs have been stable throughout and she is afebrile at the time of discharge. She is being discharged to a alf facility for postoperative rehab. Condition at discharge: improved and stable. Treatments and Procedures: Total hip arthroplasty, left hip; date of surgery Objective Vital signs: Temp Pulse Resp BP Pulse Ox 97.2 F L 82 18 107/41 99 09/26/17 07:59 09/26/17 07:59 09/26/17 07:59 09/26/17 07:59 09/26/17 07:59 no acute distress - *Routine HEENT Exam Head: Present: normocephalic Eye: Present: EOMI, PERRL ENT: Present: mucous membranes moist - *Routine Neck Exam Present: supple, trachea midline - *Routine Respiratory Exam Present: CTA bilaterally - *Routine Cardiovascular Exam Present: RRR, Normal S1, Normal S2 - *Routine Abdominal Exam Present: soft, normoactive bowel sounds - *Routine Extremities Exam Comments: On examination of the lower extremities the limb lengths are equal. Thigh and calf are soft and nontender. On examination of the LEFT hip the dressings are clean, dry and intact. The dressings were changed by me. There is no soakage of the dressings. The wound looks clean and healthy. No evidence of any infection or other complications noted. Distal pulses are 2+. Distal sensation is intact. She demonstrates good range of knee, foot and ankle movements. - *Routine Skin Exam Present: intact, normal turgor - *Routine Neurological Exam Present: alert, oriented X3, CN II-XII intact, moving all extremities, normal tone, normal speech - Routine Psychiatric Exam Present: normal affect, cooperative Results Labs on day of discharge: Labs from last 24 hours 09/26/17 09/26/17 05:44 05:44 WBC 7.9 RBC 3.47 L Hgb 9.8 L Hct 31.5 L MCV 90.7 MCH 28.2 MCHC 31.1 L RDW 12.8 Plt Count 292 MPV 7.0 L Neut % (Auto) 73.5 Lymph % (Auto) 17.1 [place] % (Auto) 6.0 Eos % (Auto) 2.7 Baso % (Auto) 0.7 Neut # (Auto) 5.8 Lymph # (Auto) 1.3 [place] # (Auto) 0.5 Eos # (Auto) 0.2 Baso # (Auto) 0.1 Sodium 136 Potassium 4.0 Chloride 104 Carbon Dioxide 26 Anion Gap 10.0 BUN 27 H Creatinine 1.15 H D Estimated Creat Clear 40 Estimated GFR 46 L Est GFR ( Amer) 56 L D Glucose 102 Calcium 9.1 DS: Diagnosis - Discharge Diagnosis (1) Hypertension Status: Acute (2) Hypothyroidism Status: Acute (3) History of total left hip arthroplasty Status: Acute (4) Primary osteoarthritis of left hip Status: Chronic Discharge Plan - Patient Discharge Instructions ACTIVITY: Continue current activity, Ambulate as tolerated DIET: continue same diet Patient Instructions: DI for Hip Replacement - Follow up Plan Follow up with: Eduardo Rao MD [Staff Physician] - 2 weeks Disposition: [facility] Home Medications: Home Medications Medication Instructions Recorded Confirmed Type aspirin 325 mg tablet 325 mg PO DAILY 09/06/17 09/26/17 History calcium carbonate 500 mg (1,250 1 tab PO BID 09/06/17 09/24/17 History mg)-vitamin D3 200 unit tablet levothyroxine 88 mcg capsule 88 mcg PO DAILY 09/06/17 09/24/17 History lisinopril 5 mg tablet 5 mg PO DAILY 09/06/17 09/24/17 History triamterene 37.5 1 tab PO DAILY 09/06/17 09/24/17 History mg-hydrochlorothiazide 25 mg tablet Ferrous Sulfate 325 mg PO BID 09/21/17 09/24/17 History Prescriptions/Medication Reconciliation: New Hydrocodone/Acetaminophen [[place] 7.5-325 Tablet] 1 tab PO Q4HP PRN #180 tab PRN Reason: Moderate To Severe Pain Continue calcium carbonate 500 mg (1,250 mg)-vitamin D3 200 unit tablet 1 tab PO BID triamterene 37.5 mg-hydrochlorothiazide 25 mg tablet 1 tab PO DAILY aspirin 325 mg tablet 325 mg PO DAILY lisinopril 5 mg tablet 5 mg PO DAILY levothyroxine 88 mcg capsule 88 mcg PO DAILY Ferrous Sulfate 325 mg PO BID Discontinued tramadol 50 mg tablet 50 mg PO Q6H - Additional Information Additional Information: Our recommendations on discharge include physical therapy with weightbearing as tolerated and standard postoperative rehab for primary total hip replacement via posterior approach. Patient was also advised to keep the leg elevated and ice the hip on a regular basis. At this stage it is permissible to take a shower and allow the incision to get wet with shower water. After padding the area dry, the wound can be left open. Patient has absorbable sutures and Steri- Strips for wound closure. To continue mobilizing weightbearing as tolerated on the LEFT side with the walker and transition to a cane as she progresses. Standard physical therapy and postoperative precautions as for a posterior approach hip replacement. Keep the abduction wedge between the legs when patient is in bed and also during sleep for 6 weeks postop. Patient will follow up with me in the office in approximately 12-14 days for wound check and to cut the suture ends. Recommend continuation of aspirin p.o. daily for 5 weeks postop for DVT prophylaxis. Please feel free to call our office at [phone] or via the hospital border machine operator [phone] for any orthopaedic questions or concerns.
== END 2017-09-26 14:21 ==
LOC: 2ND 06:40 → EDSTATUS 08:30 → 2ND 14:34
PROVIDERS: ADMIT Orthopaedic Surgery; ATTEND Orthopaedic Surgery

== ENCOUNTER → 2017-10-11 08:51 | Outpatient (CLI) | payer MEDICARE, SELFPAY ==
--- NOTE | 2017-10-11 08:55 | XR_ITS ---
XR hip LT 2-3V w/pelvis HISTORY: Follow-up hip replacement ITS.REASON: sp LEFT total hip arthroplasty ORDERING PHYSICIAN: Eduardo Rao MD PATIENT AGE: 77 years COMPARISON: 09/24/2017 FINDINGS: Status post total left hip replacement with good alignment and no evidence of complications. Severe osteoarthritis noted of the right hip with subcortical cystic changes and osteosclerosis. Mild lateral subluxation of the femoral head on the right by approximately 8 mm. IMPRESSION: 1. Status post total left hip replacement with no radiographic evidence of complication. 2. Severe osteoarthritis of the right hip with subluxation
== END ==
PROVIDERS: PCP Family Medicine; Visit Provider Orthopaedic Surgery
DX: Z96.642 Presence of left artificial hip joint (principal)
CPT/HCPCS: 73502

== ENCOUNTER → 2017-11-22 13:22 | Outpatient (CLI) | payer MEDICARE, SELFPAY ==
--- NOTE | 2017-11-22 13:24 | XR_ITS ---
XR hip LT 2-3V w/pelvis HISTORY: Follow-up hip replacement ITS.REASON: sp left hip replacement sx 09/24/17 ORDERING PHYSICIAN: Eduardo Rao MD PATIENT AGE: 77 years COMPARISON: 10/11/2017 FINDINGS: Status post total left hip replacement with good alignment and no evidence of orthopedic complication. There is some mild heterotopic bone formation along the greater trochanter. Severe osteoarthritic changes of the right hip with subcortical cystic change and osteosclerosis and mild lateral subluxation of the femoral head once again noted. The right femoral head appears slightly more flattened IMPRESSION: 1. No change with no acute finding status post left hip replacement 2. Severe osteoarthritic changes of the right hip as described above with slight increased flattening of the femoral head
== END ==
PROVIDERS: PCP Nurse Practitioner; Visit Provider Orthopaedic Surgery
DX: M16.12 Unilateral primary osteoarthritis, left hip (principal)
CPT/HCPCS: 73502

== ENCOUNTER → 2017-11-29 15:54 | Outpatient (CLI) | payer MEDICARE, SELFPAY ==
--- NOTE | 2017-11-29 | XR_ITS ---
XR hip RT 2-3V w/pelvis HISTORY: Right hip pain ITS.REASON: PAIN ORDERING PHYSICIAN: Eduardo Rao MD PATIENT AGE: 77 years COMPARISON: 8 FINDINGS: There are severe osteoarthritic changes of the right hip with osteosclerosis and subarticular cystic change of the acetabular roof and femoral head. There is flattening of the femoral head and mild lateral subluxation of the femoral head similar to the previous exam. No acute fracture or dislocation. Prior left hip replacement. IMPRESSION: Severe osteoarthritis of the right hip with subarticular cystic changes of the femoral head and acetabulum with dysplastic changes of the femoral head and mild flattening of the femoral head along with mild lateral subluxation of the right femur
[2017-11-29 15:56] LABS: Microscopic, Urine URINE MICROSCOPIC (MICROSCOPIC)
[2017-11-29 16:48] LABS: Appearance,Urine CLOUDY (Clear); Bilirubin,Urine Negative (Negative); Blood, Urine Negative (Negative); Color,Urine YELLOW (Yellow); Glucose,Urine (UA) Negative (Negative); Ketones,Urine Negative (Negative); Leukocyte Esterase,Urine Negative (Negative); Nitrate,Urine Negative (Negative); Protein,Urine Negative (Negative); Urobilinogen,Urine 0.2 EU/dl (0.2)
[2017-11-29 18:10] LABS: Amorphous Sediment,Urine 1+ /lpf; Bacteria,Urine Trace /lpf
== END ==
PROVIDERS: PCP Family Medicine; Visit Provider Orthopaedic Surgery
DX: M16.11 Unilateral primary osteoarthritis, right hip (principal); Z96.642 Presence of left artificial hip joint
CPT/HCPCS: 36415; 73502; 81001; 86850; 93005

== ENCOUNTER → 2017-12-08 08:56 | Outpatient (CLI) | payer MEDICARE, SELFPAY | PROVIDERS: PCP Family Medicine; Visit Provider Orthopaedic Surgery | DX: Z01.818 Encounter for other preprocedural examination (principal) | CPT/HCPCS: 36415; 86850 ==

== ENCOUNTER 2017-12-10 06:08 | Inpatient (IN) ==
--- NOTE | 2017-12-10 11:41 | Progress Note ---
[facility] Anesthesia Record Part I Intake, IV Amount: 2,000 Estimated blood loss (mL): 350 Urine output (mL): 300 Blood Pressure: 110/57 SaO2: 95 Pulse Rate: 83 Respiratory Rate: 16 Temperature: 97.6 F Patient is:: Drowsy, Stable Stable to PACU at:: 11:35
--- NOTE | 2017-12-10 11:41 | Progress Note ---
[facility] Anesthesia Checklist - Patient Identification Patient Identification: Arm Band - Structural Data Admitted From: Home Planned Operative Procedure/s: right [place] Consent for Planned Operative Procedure(s) Verified: Yes Verified Documents: Surgical Consent, History and Physical - NPO Status Verified Time NPO: 00:00 - Additional verifications Anesthesia Reactions: No - Airway Assessment C-Spine Mobility Assessed: Yes (mp2) TMJ Mobility Assessed: Yes Dentition: Good Dentition - Neurological Assessment Level of Consciousness: Awake, Alert - Anesthesia Plan Anesthesia Risk discussed: Yes Anesthesia Plan: Verified ASA Class: II Anesthesia Type: Spinal (with MAC) [facility] History I have reviewed the patient's past medical history: Yes Medical History: Reports:: Hypertension Denies:: Cancer, Diabetes Mellitus Type 1, Diabetes Mellitus Type 2, Internal Pacemaker, MRSA, Seizures Other Medical History: Reports: Arthritis, Cataracts, Hypothyroidism. Denies: Blood Transfusion Reaction Laterality Cases: Left: Total Hip Replacement, Bilateral: Breast Biopsy Other Surgeries: Yes: Cholecystectomy, Hysterectomy-Partial, Other. No: Pacemaker Amputation: No Fractures: Yes - *Social History Educational Level: Completed High School Smoking Status: Former smoker Tobacco Type: cigarettes Smoking End Date: 06/09/17 Alcohol Intake: never Substance Use Type: denies use Occupational Status: retired Housing: house Household Members: none - Psychiatric History Expresses thoughts of harming self/others: None Suicide Plan Description: No Plan *Family Hx:: Heart Attack, Hyperlipidemia, Hypertension
--- NOTE | 2017-12-10 11:42 | Progress Note ---
[facility] [place] Anesthesia Record Part II Discharge Time: 12:05 Destination: 2nd floor PACU nurse assessment reviewed?: Yes Patient Condition:: Good Anesthesia Complications:: None
--- NOTE | 2017-12-10 12:07 | Operative Note ---
Date of procedure: 12/10/17 Pre-op Diagnosis:: Advanced end-stage degenerative arthritis, right hip Post-op Diagnosis:: Advanced end-stage degenerative arthritis, right hip Procedure performed:: Uncemented total hip arthroplasty, right hip Surgeon:: Eduardo Rao MD Head Rigger(s):: Dr. Corado; Dr. Corado's assistance was needed and required given the difficulty and complexity of the procedure. POULTRY BREEDER:: Derek Feeback Anesthesia: spinal Estimated blood loss (mL): 350 Clinical Note:: Patient is a 77-year-old female who has end-stage osteoarthritis of her right hip unresponsive to conservative management. The arthritis is causing severe pain and significant disability and has not responded well to conservative management. She cannot even take a few steps without pain and she is completely dependent on a Andrew frame for mobilization. The pain also is affecting her lifestyle, activities of daily living and significantly impacting her sleep. She is also at a high risk of falls from the arthritis. Her imaging shows progression of the arthritis with destruction of the femoral head as well as superolateral acetabulum. Therefore a total hip arthroplasty is indicated to relieve pain and the help prevent the disability and risk of falls. She previously had a successful left total hip arthroplasty. Operative findings:: Intraoperatively, end-stage osteoarthritis of the hip joint was noted. The femoral head was grossly arthritic and misshapen and osteophytes were noted on both the acetabulum and the femoral head. There was a dysplasia/erosion of the acetabulum with the superior migration of the femoral head. The capsule was thickened and range of motion was markedly decreased. The overall bone quality was good for her age. Operative note:: On the day of the procedure the patient and family were met in the preoperative area and the patient was positively identified. A physical examination was performed and documented. The operative site was appropriately marked and initialed by me. I again reviewed the diagnosis, natural history and management options in detail including both nonsurgical and surgical. We discussed the proposed surgery, risks and benefits and alternatives in detail. The complications discussed include but are not limited to infection, injury to nerves, blood vessels and tendons, DVT and PE, fracture, limb length inequality, dislocation, implant malpositioning, implant failure, squeaking, loosening, acetabular wear, osteolysis, periprosthetic femur fracture, heterotopic ossification, abductor weakness and limp, incomplete relief of pain, likely need for further surgery in future including revision, anesthetic complications in cluding heart attack, stroke and even . We also discussed the postoperative recovery and rehabilitation. Patient understood the risks, agreed to proceed with surgery, signed the consent form and no guarantees or assurances were given or implied. The patient was brought to the operating room and a spinal anesthesia was administered by the nurse manager. The patient was then positioned in the left lateral decubitus position with the right hip facing up. We used [employer] hip positioner for this. All the bony prominences were appropriately padded. The right hip was then prepped with isopropyl alcohol followed by chlorhexidine and draped in the usual sterile fashion. The entire operative team wore isolation suits and the Operating Room traffic was controlled. The skin incision was marked for a posterior approach to the hip joint. The perineum and the operative site were sealed off with Ioban drape. A preprocedure timeout was performed as per hospital protocol identifying the patient, correct surgery and correct site. Administration of 2 g of prophylactic IV Ancef was confirmed with the anesthetic team. Before completion of the procedure 1 more gram of IV Ancef was administered as the operating time was over 2 hours. We have also administered 1g of IV tranexamic acid just before the incision and one more gram at the time of wound closure, to reduce the bleeding. A posterior approach was used to the right hip joint. The skin incision was made centering over the posterior part of the greater trochanter extending posteriorly in a curved fashion across the buttock. An electrocautery was used for hemostasis. The dissection was carried through the subcutaneous tissue down to the fascia jana. The fascia jana and gluteus fascia were split in line with the incision and a Charnley retractor was placed. The trochanteric bursa was then removed with blunt dissection. The sciatic nerve was identified and kept out of harm's way throughout the rest of the procedure. The hip joint was internally rotated and the fat over the short external rotators was cleared with a sponge. The short external rotator muscles were identified, a tag stitch was placed near their insertion and they were d ivided close to the trochanter with electrocautery. This exposed the joint capsule which was opened in a T-shaped incision after tag stitches were placed to both the leaves of the capsule. The hip joint was then dislocated. The femoral cutting guide was used to demarcate the appropriate level of the neck cut and the neck was osteotomized with an oscillating saw. The femoral head was removed, noted to be very deformed/eroded with extensive osteophyte formation over the neck and saved on the back table for later use if needed. We then placed anterior and posterior Cobra retractors and proceeded to prepare the acetabulum. The soft tissue contents of the acetabulum including the ligamentum teres and the labrum were removed. We noticed superior erosion of the acetabulum and cyst formation. We then proceeded to reaming the acetabulum. We started off with a size 45 reamer and then proceeded with reaming up to size 54 for a size 54 revision acetabular shell. We choose the revision acetabular shell for superior bone integration and availability of multiple screw hole options. There were 2 small cystic areas in the superolateral acetabulum, which were curetted out. Following appropriate reaming, we used a size 54 cup trial which could be seated firmly and was noted to be stable. We then removed the trial shell and placed a size 54 definitive acetabular revision shell at approximately 45 degrees inclination and 20 degrees of anteversion. The press-fit fixation was quite solid; however, we have decided to supplement the fixation of the cup with acetabular screw placement. Using the flexible drill, we placed three 6.5 x 25 mm screws into the posterior superior and posterior inferior quadrants. We then placed the metal liner into the shell and impacted into place. We then placed a Ray-Anyi gauze in the acetabulum and proceeded to prepare the proximal femur. We had to proceed carefully with this part given the marked stiffness of the hip. After removing the soft tissue from the medial aspect of the greater trochanter, a box osteotome was used to remove the bone from the proximal femur. A canal entry reamer was then used to open the femoral canal paying close attention to keep the reamer in a lateral position. Next we used the lateralizing drill. Next we performed femoral broaching starting with a small broach, making sure to lateralize the placement and maintain 15-20 degrees of femoral anteversion. The broaching was continued sequentially up to size 5 broach. We found this to be a very good fit without any rocking. We then finished the preparation of the proximal femur with a calcar reamer. We then attempted a trial reduction using a size 5 broach, 132 angle neck and 0 mm head. However, we could not reduce the hip joint with these trials. We then trialed with a -4 mm head but given this was too tight. Therefore we trialed with 127 angle neck and -4 mm head. We could reduce the hip joint well with these trials. The hip was taken through range of motion and tested in adduction, internal and external rotation as well as with a shuck and posteriorly directed force on a flexed hip. We placed the hip at 90 degrees of flexion and then we could internally rotate to 45 degrees with no evidence of instability. Also in the sleep position of approximately 20 degrees of adduction and internal rotation of 40 degrees the hip was still stable. We also noted that the limb lengths were equal with these components. As the hip was noted to be very stable with these trial components throughout the range of motion, we decided on this as our final construct. Next the trial components were removed and the femoral canal was irrigated with the pulse lavage and suctioned out. The definitive femoral stem was then placed and seated to the appropriate level. This gave us a very good fit without any play whatsoever. We then irrigated and dried the Boswell taper and then placed the definitive MDM femoral head assembly on the stem and tapped into place. The Ray-Anyi was removed from the acetabulum and hip joint irrigated with the pulse lavage. The hip was then reduced and taken through range of motion and noted to be very stable. The limb length was also well c orrected. The hip joint was then soaked with dilute Betadine (0.35 percent) solution for 3 minutes followed by suctioning of the solution and pulsatile lavage with the 1 L of normal saline. At this point, I also injected the capsule and soft tissue with the local anesthetic cocktail (0.5 percent bupivacaine 200 mg +10 mg of morphine +600 g of epinephrine +750 mg of cefuroxime +30 mg of ketorolac diluted in normal saline to make up a total volume of 120 mL). The hip joint was again thoroughly irrigated with the pulse lavage and good hemostasis was confirmed before proceeding with wound closure. The capsule was closed with #1 Vicryl sutures followed by the reattachment of the external rotators to the greater trochanter with #1 Vicryl sutures. Next the fascia jana and gluteus fascia were closed with #1 Vicryl sutures. The wound was then finally irrigated with pulse lavage and suctioned dry. Next the subcutaneous tissue was closed with 2-0 Vicryl sutures. The skin was closed with subcuticular 4-0 Monocryl sutures, Dermabond and Steri-Strips. Sterile dressings were applied consisting of Xeroform, 4 x 4 and [address] secured in place with adhesive tape. No drains were placed. The patient was then transferred from the operating table onto the bed. The leg lengths were again checked in supine position and noted to be equal. An abduction foam was placed between the legs. The patient was then reversed from the anesthetic and transported to the postoperative recovery area in a stable condition. Patient tolerated the procedure well and there were no immediate complications. The swab, needle and instrument counts were correct according to the scrub team at the end of the procedure. Portable x-rays of the pelvis AP view and AP and lateral views of the right hip were obtained in the recovery area which showed satisfactory placement of the components and no evident complications. Postoperatively, institute and continue standard precautions for a posterior hip approach. Patient can be mobilized weightbearing as tolerated with the help of physical therapy and commence standard physical therapy for a posterior approach on the first postoperative day. Implants: The following [employer] implants were used- [place] Accolade 2 press-fit femoral stem, 127 degree neck angle, size 5 Trident titanium hemispherical shell, 54 mm 42 mm inner diameter MDM cementless liner Voodoo MDM X3 insert 28/48, size 42 E Biolox delta ceramic head V 40 femoral head, size 28 mm x -4 mm neck length Voodoo gap plate screw 6.5 mm x 25 mm 3 Industry cash applications representative: Prosper Bautista from [employer]. Condition: stable Disposition: floor Specimens:: None Complications:: None
--- NOTE | 2017-12-10 15:11 | Pharmacy Consult Notes ---
[facility] Pharmacy VTE Monitoring - Patient Demographics Admission date: 12/10/17 Report Date: 12/10/17 Time: 15:10 Allergies/Adverse Reactions: Patient Allergies No Known Allergies Allergy (Verified 12/07/17 11:58) Height: 1.57 m Weight: 58.967 kg - VTE Risk Was VTE Risk Assessment Performed: Yes VTE Score: 4 VTE Risk Level: Low Risk - Prophylaxis VTE Prophylaxis Ordered?: Yes Types of VTE Prophylaxis: IPCS Thigh High, Pharmacological Location of Applied Device: Bilateral Lower Extremeties Pharmacologic Type: Other (XARELTO) - VTE Diagnosis Confirmed Treatment or plan recommended: Continue Current Treatment
[2017-12-10 15:40] LABS: Hematocrit 28.4 % (37.0-47.0); Hemoglobin 9.3 g/dL (12.2-16.2)
--- NOTE | 2017-12-10 16:29 | Progress Note ---
Subjective Date: 12/10/17 Time: 15:00 Principal diagnosis: Status post total hip arthroplasty, right Interval history: Status post right total hip arthroplasty today. Patient has returned from the OR and is sleepy. Nursing staff is concerned about her blood pressure is running low. She had 1 L of normal saline since returning from the OR. She is not cleaning of any pain or discomfort. PN: Obj Ex Vital signs: Temp Pulse Resp BP Pulse Ox 98.1 F 67 18 92/41 95 12/10/17 13:50 12/10/17 13:50 12/10/17 13:50 12/10/17 13:50 12/10/17 13:50 Narrative: Laboratory Results - last 24 hr 12/10/17 06:40: Blood Type Cancelled, Antibody Screen Cancelled 12/10/17 07:46: Urine Color Yellow, Urine Appearance Clear, Urine pH 6.5, Ur Specific [place] 1.020, Urine Protein Negative, Urine Glucose (UA) Negative, Urine Ketones Negative, Urine Blood Negative, Urine Nitrate Negative, Urine Bilirubin Negative, Urine Urobilinogen 0.2, Ur Leukocyte Esterase Negative, Urine WBC Occasional, Ur Squamous Epith Cells Occasional, Urine Bacteria Trace 12/10/17 15:20: Hgb 9.3 L, Hct 28.4 L Exam General appearance: alert, awake, no acute distress ENT: Mucous membranes dry Cardiovascular: regular rate & rhythm, normal peripheral pulses Respiratory: clear to auscultation, normal breath sounds no respiratory distress noted, speaks in full sentences ABD: soft and non tender Genitourinary: Catheter in situ. Neuro: alert, drowsy, On examination of the lower extremities, she is in an abduction pillow; the limb lengths are equal. On examination of the right hip the dressings are clean, dry and intact. No soaking of dressings or any other evidence of bleeding noted. Distal pulses are 1+. Distal sensation is intact to light touch throughout. She is moving the ankle, foot and toes actively. - Urinary Catheter Management Auguste Cath placed during this visit: yes Urethral indwelling: Yes Reason for continuing: Surgical procedure Insertion date: 12/10/17 Insertion time: 08:00 Progress Note: A&P Assessment and Plan for All Diagnoses:: I reviewed the clinical and operative findings and procedure performed with the patient and family. Patient is doing well and reports no problems. Continue DVT prophylaxis. Continue abduction pillow when in bed and continue standard precautions for the posterior approach hip replacement. H&H was obtained and noted to be 9.3/28.4. Keep a close eye on input and output and vital signs.
[2017-12-11 06:37] LABS: Basophils % 0.3 % (0.1-2.0); Eosinophils # 0.1 K/mm3 (0.0-0.4); Eosinophils % 1.1 % (0.1-12.0); Hematocrit 26.9 % (37.0-47.0); Hemoglobin 8.9 g/dL (12.2-16.2); Lymphocytes % 15.8 K/mm3 (10-50); Mean Corpuscular HGB Conc 33.1 g/dL (31.8-35.4); Mean Corpuscular Hemoglobin 29.5 pg (27.0-31.2); Mean Corpuscular Volume 89.2 fl (81-99); Mean Platelet Volume 7.3 fl (7.4-10.4); Monocytes # 0.5 K/mm3 (0.1-1.0); Monocytes % 7.3 % (1.7-9.3); Neutrophils # 4.6 K/mm3 (1.8-7.8); Neutrophils % 75.4 % (37.0-80.0); Platelet Count 239 K/mm3 (142-424); Red Blood Count 3.02 M/mm3 (4.20-5.40); Red Cell Distribution Width 13.8 % (11.5-17.5); White Blood Count 6.2 K/mm3 (4.8-10.8)
[2017-12-11 06:47] LABS: Anion Gap 10.4 mEq/L (5-15); Calcium 8.7 mg/dL (8.5-10.1); Potassium 4.4 mmoL/L (3.5-5.1)
--- NOTE | 2017-12-11 07:16 | Progress Note ---
Internal Medicine - PN: Subj *Date: 12/11/17 *Time: 07:14 Interval history: Patient underwent successful right total hip arthroplasty yesterday. This morning her only complaint is right hand pain which she believes is due to carpal tunnel syndrome. She describes swollen sedation in the hand along with numbness tingling that gave her proximal overnight. She developed similar sensations in the hand whenever she was using her walker when she was recovering from left hip arthroplasty. Exam Vital signs and Labs for Last 24 Hours: Temp Pulse Resp BP Pulse Ox 97.7 F 87 16 101/51 94 L 12/11/17 06:00 12/11/17 06:00 12/11/17 06:00 12/11/17 06:00 12/11/17 06:00 Laboratory Results - last 24 hr 12/10/17 06:40: Blood Type Cancelled, Antibody Screen Cancelled 12/10/17 07:46: Urine Color Yellow, Urine Appearance Clear, Urine pH 6.5, Ur Specific [place] 1.020, Urine Protein Negative, Urine Glucose (UA) Negative, Urine Ketones Negative, Urine Blood Negative, Urine Nitrate Negative, Urine Bilirubin Negative, Urine Urobilinogen 0.2, Ur Leukocyte Esterase Negative, Urine WBC Occasional, Ur Squamous Epith Cells Occasional, Urine Bacteria Trace 12/10/17 15:20: Hgb 9.3 L, Hct 28.4 L 12/11/17 06:30: WBC 6.2, RBC 3.02 L, Hgb 8.9 L, Hct 26.9 L, MCV 89.2, MCH 29.5, MCHC 33.1, RDW 13.8, Plt Count 239, MPV 7.3 L, Neut % (Auto) 75.4, Lymph % (Auto) 15.8, [place] % (Auto) 7.3, Eos % (Auto) 1.1, Baso % (Auto) 0.3, Neut # (Auto) 4.6, Lymph # (Auto) 1.0, [place] # (Auto) 0.5, Eos # (Auto) 0.1, Baso # (Auto) 0.0 12/11/17 06:30: Sodium 141, Potassium 4.4, Chloride 107, Carbon Dioxide 28, Anion Gap 10.4, BUN 24 H, Creatinine 1.12 H, Estimated Creat Clear 40, Estimated GFR 47 L, Est GFR ( Amer) 57 L, Glucose 107 H, Calcium 8.7 I & O for Last 24 hours: Intake & Output 12/08/17 12/09/17 12/10/17 12/11/17 11:59 11:59 11:59 11:59 Intake Total 1999 / 1999 240 / 240 Output Total 300 / 300 Balance 1700 / 1700 240 / 240 Weight 130 lb 130 lb - Constitutional no acute distress - *Routine Respiratory Exam Present: CTA bilaterally - *Routine Cardiovascular Exam Present: RRR, Normal S1, Normal S2 - *Routine Extremities Exam Comments: Right has has arthritic appearance of the MCP, PIP, DIP joints. She has adequate range of motion. Negative Tinel's test. Phalen's was not performed d ue to the presence of an IV Assessment and Plan (1) Primary osteoarthritis of right hip Current visit: Yes Status: Acute Category: Medical Code(s): M16.11 - Unilateral primary osteoarthritis, right hip (2) History of total right hip arthroplasty Current visit: Yes Status: Acute Category: Surgical Code(s): Z96.641 - Presence of right artificial hip joint (3) Hypertension Current visit: No Status: Acute Category: Medical Code(s): I10 - Essential (primary) hypertension - Assessment and plan all Dx Assessment and Plan for all problems:: 1. Continue home meds 2. Xarelto for DVT plexus 3. As needed gabapentin for any carpal tunnel pain.
--- NOTE | 2017-12-11 13:29 | Progress Note ---
Subjective Date: 12/11/17 Time: 12:30 Principal diagnosis: Status post total hip arthroplasty, right Interval history: Patient is status post right total hip arthroplasty post op day #1. Patient is sitting out in the chair. Says is doing well and reports no problems. Patient has minimal pain and says it's well-controlled with medication. No history of any nausea or vomiting. No history of any cough, chest pain, shortness of breath or palpitations. Patient says she is eating and drinking well. No history of any distal tingling or numbness. PN: Obj Ex Vital signs: Temp Pulse Resp BP Pulse Ox 98.5 F 86 18 100/54 94 L 12/11/17 12:00 12/11/17 12:00 12/11/17 12:00 12/11/17 12:00 12/11/17 12:00 Narrative: Laboratory Results - last 24 hr 12/10/17 15:20: Hgb 9.3 L, Hct 28.4 L 12/11/17 06:30: WBC 6.2, RBC 3.02 L, Hgb 8.9 L, Hct 26.9 L, MCV 89.2, MCH 29.5, MCHC 33.1, RDW 13.8, Plt Count 239, MPV 7.3 L, Neut % (Auto) 75.4, Lymph % (Auto) 15.8, [place] % (Auto) 7.3, Eos % (Auto) 1.1, Baso % (Auto) 0.3, Neut # (Auto) 4.6, Lymph # (Auto) 1.0, [place] # (Auto) 0.5, Eos # (Auto) 0.1, Baso # (Auto) 0.0 12/11/17 06:30: Sodium 141, Potassium 4.4, Chloride 107, Carbon Dioxide 28, Anion Gap 10.4, BUN 24 H, Creatinine 1.12 H, Estimated Creat Clear 40, Estimated GFR 47 L, Est GFR ( Amer) 57 L, Glucose 107 H, Calcium 8.7 Intake & Output 12/09/17 12/10/17 12/11/17 12/12/17 11:59 11:59 11:59 11:59 Intake Total 1999 / 1999 2575 / 2575 Output Total 300 / 300 1000 / 1000 Balance 1700 / 1700 1575 / 1575 Weight 130 lb Exam General appearance: alert, active, awake, no acute distress ENT: Mucous membranes moist Neck: normal inspection Cardiovascular: regular rate & rhythm, S1-S2 heard, normal peripheral pulses Respiratory: clear to auscultation, normal breath sounds no respiratory distress noted, speaks in full sentences ABD: soft and non tender Genitourinary: Catheter in situ. Neuro: alert, awake, oriented x 3 Psych: normal mood and affect On examination of the lower extremities the limb lengths are equal. Thigh and calf are soft and nontender. On examination of the right hip the dressings are clean, dry and intact. Distal pulses (DP, TP ) are 2+. Distal sensation is intact to light touch throughout. No motor deficits noted distally. She has full range of foot and ankle movements. Imaging: Postoperative check x-rays of her pelvis/right hip are showing satisfactory total hip arthroplasty with good alignment and fixation. No complications noted on the x-rays. - Urinary Catheter Management Auguste Cath placed during this visit: yes Urethral indwelling: Yes Reason for continuing: Decision to DC catheter Insertion date: 12/10/17 Insertion time: 08:00 Progress Note: A&P (1) Primary osteoarthritis of right hip Status: Acute Current Visit: Yes (2) History of total right hip arthroplasty Status: Acute Current Visit: Yes (3) Hypertension Status: Acute Current Visit: No Assessment and Plan for All Diagnoses:: I reviewed the clinical and operative findings and procedure performed with the patient and family. Patient is doing very well and reports no problems. Patient is mobilizing well weightbearing as tolerated on the right side with the walker and to continue the same. Continue DVT prophylaxis. Continue abduction pillow when in bed and continue standard precautions for the posterior approach hip replacement. Discontinue IV fluids, [facility]. Discontinue the urinary catheter. Care management consult regarding discharge planning. Medical management as per Dr. Goodson.
[2017-12-12 06:16] LABS: Basophils # 0.1 K/mm3 (0-0.2); Basophils % 0.6 % (0.1-2.0); Eosinophils # 0.4 K/mm3 (0.0-0.4); Eosinophils % 4.9 % (0.1-12.0); Hemoglobin 8.6 g/dL (12.2-16.2); Lymphocytes # 1.5 K/mm3 (0.7-4.5); Mean Corpuscular Volume 90.8 fl (81-99); Mean Platelet Volume 6.7 fl (7.4-10.4); Monocytes # 0.6 K/mm3 (0.1-1.0); Monocytes % 7.5 % (1.7-9.3); Neutrophils # 5.9 K/mm3 (1.8-7.8); Platelet Count 287 K/mm3 (142-424); Red Blood Count 2.97 M/mm3 (4.20-5.40); Red Cell Distribution Width 13.9 % (11.5-17.5); White Blood Count 8.5 K/mm3 (4.8-10.8)
[2017-12-12 06:18] LABS: Anion Gap 10.1 mEq/L (5-15); Potassium 4.1 mmoL/L (3.5-5.1)
--- NOTE | 2017-12-12 06:51 | Progress Note ---
Internal Medicine - PN: Subj *Date: 12/12/17 *Time: 06:49 Interval history: Patient reports no complaints. She denies paresthesias of the distal right leg. Pain is well controlled with oral narcotics. Exam Vital signs and Labs for Last 24 Hours: Temp Pulse Resp BP Pulse Ox 98.4 F 83 16 127/87 98 12/12/17 04:00 12/12/17 04:00 12/12/17 04:00 12/12/17 04:00 12/12/17 04:00 Laboratory Results - last 24 hr 12/12/17 05:31: WBC 8.5 D, RBC 2.97 L, Hgb 8.6 L, Hct 27.0 L, MCV 90.8, MCH 29.0, MCHC 32.0, RDW 13.9, Plt Count 287, MPV 6.7 L, Neut % (Auto) 70.0, Lymph % (Auto) 17.0, [place] % (Auto) 7.5, Eos % (Auto) 4.9, Baso % (Auto) 0.6, Neut # (Auto) 5.9, Lymph # (Auto) 1.5, [place] # (Auto) 0.6, Eos # (Auto) 0.4, Baso # (Auto) 0.1 12/12/17 05:31: Sodium 139, Potassium 4.1, Chloride 105, Carbon Dioxide 28, Anion Gap 10.1, BUN 22 H, Creatinine 1.10 H, Estimated Creat Clear 43, Estimated GFR 48 L, Est GFR ( Amer) 58 L, Glucose 92, Calcium 9.0 I & O for Last 24 hours: Intake & Output 12/09/17 12/10/17 12/11/17 12/12/17 11:59 11:59 11:59 11:59 Intake Total 1999 / 1999 2575 / 2575 631 / 631 Output Total 300 / 300 1000 / 1000 600 / 600 Balance 1700 / 1700 1575 / 1575 31 / Weight 130 lb 139 lb 8 oz Narrative: She is awake and alert. Are clear to auscultation. Heart has a regular rate and rhythm Assessment and Plan (1) Primary osteoarthritis of right hip Current visit: Yes Status: Acute Category: Medical Code(s): M16.11 - Unilateral primary osteoarthritis, right hip (2) History of total right hip arthroplasty Current visit: Yes Status: Acute Category: Surgical Code(s): Z96.641 - Presence of right artificial hip joint (3) Hypertension Current visit: No Status: Acute Category: Medical Code(s): I10 - Essential (primary) hypertension (4) Stage III chronic kidney disease Current visit: Yes Status: Acute Category: Medical Code(s): N18.3 - Chronic kidney disease, stage 3 (moderate) (5) Iron deficiency anemia Current visit: Yes Status: Acute Category: Medical Code(s): D50.9 - Iron deficiency anemia, unspecified (6) Hypothyroidism Current visit: No Status: Acute Category: Medical Code(s): E03.9 - Hypothyroidism, unspecified - Assessment and plan all Dx Assessment and Plan for all problems:: Medically patient is stable. Patient tells me Dr. Rao will change her dressing today. I believe she can be discharged once her insurance precertification has been completed.
--- NOTE | 2017-12-12 06:55 | Discharge Summary ---
General - General Admission date:: 12/10/17 Discharge date: 12/12/17 HPI HPI: 77-year-old female admitted after right total hip arthroplasty performed by Dr. Rao on December 10, 2017 Hospital Course Hospital Course: Patient underwent successful right total hip arthroplasty on December 10. She was admitted to the hospital postoperatively and her hospital course was uncomplicated. Patient had CREDIT OFFICER pump for the first 24 hours postop. After 24 hours CREDIT OFFICER pump and Auguste catheter were discontinued. Patient's pain was controlled on oral narcotics. Home medications were restarted. Xarelto was used for postop DVT prophylaxis and will be continued for total of 35 days. Patient's insurance requires precertification before transfer to [facility]. Once this was obtained patient was transferred to [facility] for rehabilitation after surgery. Mental status: Average Rehab potential: Good Prognosis: Good Objective Vital signs: Temp Pulse Resp BP Pulse Ox 98.4 F 83 16 127/87 98 12/12/17 04:00 12/12/17 04:00 12/12/17 04:00 12/12/17 04:00 12/12/17 04:00 Results Labs on day of discharge: Labs from last 24 hours 12/12/17 12/12/17 05:31 05:31 WBC 8.5 D RBC 2.97 L Hgb 8.6 L Hct 27.0 L MCV 90.8 MCH 29.0 MCHC 32.0 RDW 13.9 Plt Count 287 MPV 6.7 L Neut % (Auto) 70.0 Lymph % (Auto) 17.0 [place] % (Auto) 7.5 Eos % (Auto) 4.9 Baso % (Auto) 0.6 Neut # (Auto) 5.9 Lymph # (Auto) 1.5 [place] # (Auto) 0.6 Eos # (Auto) 0.4 Baso # (Auto) 0.1 Sodium 139 Potassium 4.1 Chloride 105 Carbon Dioxide 28 Anion Gap 10.1 BUN 22 H Creatinine 1.10 H Estimated Creat Clear 43 Estimated GFR 48 L Est GFR ( Amer) 58 L Glucose 92 Calcium 9.0 DS: Diagnosis - Discharge Diagnosis (1) Primary osteoarthritis of right hip Status: Acute (2) History of total right hip arthroplasty Status: Acute (3) Hypertension Status: Acute (4) Stage III chronic kidney disease Status: Acute (5) Iron deficiency anemia Status: Acute (6) Hypothyroidism Status: Acute Discharge Plan - Patient Discharge Instructions ACTIVITY: Continue current activity DIET: continue same diet - Follow up Plan Follow up with: Eduardo Rao MD [Staff Physician] - 2 weeks Disposition: Xfer [facility] Home Medications: Home Medications Medication Instructions Recorded Confirmed Type aspirin 325 mg tablet 325 mg PO DAILY 09/06/17 12/10/17 History calcium carbonate 500 mg (1,250 1 tab PO BID 09/06/17 12/10/17 History mg)-vitamin D3 200 unit tablet levothyroxine 88 mcg capsule 88 mcg PO DAILY 09/06/17 12/10/17 History lisinopril 5 mg tablet 5 mg PO DAILY 09/06/17 12/10/17 History triamterene 37.5 1 tab PO DAILY 09/06/17 12/10/17 History mg-hydrochlorothiazide 25 mg tablet Ferrous Sulfate 325 mg PO BID 09/21/17 12/10/17 History hydrocodone 5 mg-acetaminophen 325 1 tab PO Q4-6H PRN 11/22/17 12/10/17 History mg tablet Prescriptions/Medication Reconciliation: New Hydrocod/Acet 5/325 mg [Serafina 5/325mg tablet] 1 - 2 tab PO Q4HP PRN #120 tab PRN Reason: Moderate To Severe Pain Rivaroxaban [Xarelto 10mg tablet] 10 mg PO DAILY #30 tab Continue calcium carbonate 500 mg (1,250 mg)-vitamin D3 200 unit tablet 1 tab PO BID triamterene 37.5 mg-hydrochlorothiazide 25 mg tablet 1 tab PO DAILY lisinopril 5 mg tablet 5 mg PO DAILY levothyroxine 88 mcg capsule 88 mcg PO DAILY Ferrous Sulfate 325 mg PO BID Discontinued aspirin 325 mg tablet 325 mg PO DAILY hydrocodone 5 mg-acetaminophen 325 mg tablet 1 tab PO Q4-6H PRN PRN Reason: pain
--- NOTE | 2017-12-12 14:04 | Progress Note ---
Subjective Date: 12/12/17 Time: 12:45 Principal diagnosis: Status post total hip arthroplasty, right Interval history: Patient is status post right total hip arthroplasty post op day #2. Patient is sitting out in the chair. Says is doing well and reports no problems. Patient has minimal pain and says it's well-controlled with medication. No history of any nausea or vomiting. No history of any cough, chest pain, shortness of breath or palpitations. Patient says she is eating and drinking well. No history of any distal tingling or numbness. PN: Obj Ex Vital signs: Temp Pulse Resp BP Pulse Ox 98.6 F 82 18 105/58 95 12/12/17 07:42 12/12/17 07:42 12/12/17 07:42 12/12/17 07:42 12/12/17 08:00 Narrative: Laboratory Results - last 24 hr 12/12/17 05:31: WBC 8.5 D, RBC 2.97 L, Hgb 8.6 L, Hct 27.0 L, MCV 90.8, MCH 29.0, MCHC 32.0, RDW 13.9, Plt Count 287, MPV 6.7 L, Neut % (Auto) 70.0, Lymph % (Auto) 17.0, [place]ell % (Auto) 7.5, Eos % (Auto) 4.9, Baso % (Auto) 0.6, Neut # (Auto) 5.9, Lymph # (Auto) 1.5, Howell # (Auto) 0.6, Eos # (Auto) 0.4, Baso # (Auto) 0.1 12/12/17 05:31: Sodium 139, Potassium 4.1, Chloride 105, Carbon Dioxide 28, Anion Gap 10.1, BUN 22 H, Creatinine 1.10 H, Estimated Creat Clear 43, Estimated GFR 48 L, Est GFR ( Amer) 58 L, Glucose 92, Calcium 9.0 Exam General appearance: alert, active, awake, no acute distress Cardiovascular: regular rate & rhythm, normal peripheral pulses Respiratory: clear to auscultation, normal breath sounds no respiratory distress noted, speaks in full sentences ABD: soft and non tender Neuro: alert,, awake, oriented x 3 Psych: normal mood and affect On examination of the lower extremities the limb lengths are equal. Thigh and calf are soft and nontender. On examination of the right the dressings are clean, dry and intact. The dressings were changed by me. There is no soakage of the dressings. The wound looks clean and healthy. No evidence of any infection or other complications noted. Distal pulses are 2+. Distal sensation is intact to light touch throughout. No motor deficits noted distally. - Urinary Catheter Management Auguste Cath placed during this visit: yes Urethral indwelling: No Insertion date: 12/10/17 Insertion time: 08:00 Progress Note: A&P (1) Primary osteoarthritis of right hip Status: Acute Current Visit: Yes (2) History of total right hip arthroplasty Status: Acute Current Visit: Yes (3) Hypertension Status: Acute Current Visit: No (4) Stage III chronic kidney disease Status: Acute Current Visit: Yes (5) Iron deficiency anemia Status: Acute Current Visit: Yes (6) Hypothyroidism Status: Acute Current Visit: No Assessment and Plan for All Diagnoses:: I reviewed the clinical findings and progress with the patient. Patient is doing very well and reports no problems. Patient is mobilizing well weightbearing as tolerated on the right side with the walker and to continue the same. Continue PT/OT, pain management with dietary medication and continue DVT prophylaxis for 5 weeks postop. Continue abduction pillow when in bed and continue standard precautions for the posterior approach hip replacement for 6 weeks postop. She is likely to be discharged either today or tomorrow, depending on insurance approval, [facility] Follow-up in my office in 2 weeks time with check x-ray. Please feel free to call our office at [phone] for any orthopaedic questions. Medical management as per Dr. Goodson.
--- NOTE | 2017-12-13 07:01 | Progress Note ---
Internal Medicine - PN: Subj *Date: 12/13/17 *Time: 07:00 Interval history: No changes in patient condition. Pain is controlled. She did have some loose stools. Exam Vital signs and Labs for Last 24 Hours: Temp Pulse Resp BP Pulse Ox 98.1 F 63 16 109/42 94 L 12/13/17 04:36 12/13/17 04:36 12/13/17 04:36 12/13/17 04:36 12/13/17 04:36 I & O for Last 24 hours: Intake & Output 12/10/17 12/11/17 12/12/17 12/13/17 11:59 11:59 11:59 11:59 Intake Total 1999 / 1999 2575 / 2575 1411 / 1411 600 / 600 Output Total 300 / 300 1000 / 1000 600 / 600 900 / 900 Balance 1700 / 1700 1575 / 1575 811 / 811 -300 / -300 Weight 130 lb 139 lb 8 oz - Constitutional no acute distress - *Routine Respiratory Exam Present: CTA bilaterally - *Routine Cardiovascular Exam Present: RRR, Normal S1, Normal S2 Assessment and Plan (1) History of total right hip arthroplasty Current visit: Yes Status: Acute Category: Surgical Code(s): Z96.641 - Presence of right artificial hip joint (2) Iron deficiency anemia Current visit: Yes Status: Acute Category: Medical Code(s): D50.9 - Iron deficiency anemia, unspecified (3) Primary osteoarthritis of right hip Current visit: Yes Status: Acute Category: Medical Code(s): M16.11 - Unilateral primary osteoarthritis, right hip (4) Stage III chronic kidney disease Current visit: Yes Status: Acute Category: Medical Code(s): N18.3 - Chronic kidney disease, stage 3 (moderate) (5) History of total left hip arthroplasty Current visit: No Status: Acute Category: Surgical Code(s): Z96.642 - Presence of left artificial hip joint (6) Hypertension Current visit: No Status: Acute Category: Medical Code(s): I10 - Essential (primary) hypertension (7) Hypothyroidism Current visit: No Status: Acute Category: Medical Code(s): E03.9 - Hypothyroidism, unspecified - Assessment and plan all Dx Assessment and Plan for all problems:: We are awaiting for approval of her transfer to [facility] facility by insurance. Medically she is stable
[2017-12-13 08:24] VITALS: BP 99/44
--- NOTE | 2017-12-13 12:51 | Progress Note ---
Subjective Date: 12/13/17 Time: 11:30 Principal diagnosis: Status post total hip arthroplasty, right Interval history: Patient is status post right total hip arthroplasty post op day #3. Patient is sitting out in the chair. Says is doing well and reports no problems. Patient has minimal soreness over the operative area and says it's well-controlled with medication. She says she is completely relieved of the preoperative pain and is very pleased with this. She is mobilizing well with a walker. No history of any nausea or vomiting. No history of any cough, chest pain, shortness of breath or palpitations. No history of any distal tingling or numbness. She could not be discharged yesterday as insurance approval for SNF transfer did not come through in time. PN: Obj Ex Vital signs: Temp Pulse Resp BP Pulse Ox 97.8 F 79 18 99/44 94 L 12/13/17 08:00 12/13/17 08:00 12/13/17 12:29 12/13/17 08:00 12/13/17 08:00 Narrative: Exam General appearance: alert, active, awake, no acute distress Cardiovascular: regular rate & rhythm, normal peripheral pulses Respiratory: no respiratory distress noted, speaks in full sentences ABD: soft and non tender Neuro: alert,, awake, oriented x 3 On examination of the lower extremities the limb lengths are equal. Thigh and calf are soft and nontender. On examination of the right hip the dressings are clean, dry and intact. No evidence of any infection or other complications noted. Distal pulses are 2+. Distal sensation is intact to light touch throughout. No motor deficits noted distally. - Urinary Catheter Management Auguste Cath placed during this visit: yes Urethral indwelling: No Reason for continuing: Surgical procedure Insertion date: 12/10/17 Insertion time: 08:00 Progress Note: A&P (1) History of total right hip arthroplasty Status: Acute Current Visit: Yes (2) Iron deficiency anemia Status: Acute Current Visit: Yes (3) Primary osteoarthritis of right hip Status: Acute Current Visit: Yes (4) Stage III chronic kidney disease Status: Acute Current Visit: Yes (5) History of total left hip arthroplasty Status: Acute Current Visit: No (6) Hypertension Status: Acute Current Visit: No (7) Hypothyroidism Status: Acute Current Visit: No Assessment and Plan for All Diagnoses:: I reviewed the clinical findings and progress with the patient. Patient is doing very well and reports no problems. Patient is mobilizing well weightbearing as tolerated on the right side with the walker and to continue the same. Continue DVT prophylaxis. Continue abduction pillow when in bed and continue standard precautions for the posterior approach hip replacement. [facility] Recommend DVT prophylaxis for 5 weeks postop- the appropriate agents include Lovenox, Aspirin 325 mg, Xarelto (Rivaroxaban), Eliquis (apixaban) and Coumadin. Follow-up in my office in 2 weeks time with check x-ray. Please feel free to call our office at [phone] for any orthopaedic questions. Medical management as per Dr. Goodson.
== END 2017-12-13 15:30 ==
LOC: 2ND 06:08 → EDSTATUS 07:30 → 2ND 11:58
PROVIDERS: ADMIT Orthopaedic Surgery; ATTEND Orthopaedic Surgery
CPT/HCPCS: 36415; 73502; 80048; 81001; 85014; 85018; 85025; 86850; 94761; 96374; 97116; 97161; 97530; C1713; C1776; J0697; J2405; J2704

== ENCOUNTER → 2017-12-27 14:02 | Outpatient (CLI) | payer MEDICARE, SELFPAY ==
--- NOTE | 2017-12-27 14:05 | XR_ITS ---
XR hip RT 2-3V w/pelvis HISTORY: Follow-up surgery/fracture ITS.REASON: sp total right total hip arthroplasty dos 12/10/17 ORDERING PHYSICIAN: Eduardo Rao MD PATIENT AGE: 77 years COMPARISON: 12/10/2017 FINDINGS: Status post total right hip arthroplasty with good alignment. No evidence of orthopedic complications. There has been a prior left total hip prosthesis placed as well. IMPRESSION: Good alignment status post total right hip prosthesis without evidence of complication
== END ==
PROVIDERS: PCP Family Medicine; Visit Provider Orthopaedic Surgery
DX: Z96.641 Presence of right artificial hip joint (principal)
CPT/HCPCS: 73502

== ENCOUNTER → 2018-01-23 13:51 | Outpatient (CLI) | payer MEDICARE, SELFPAY ==
--- NOTE | 2018-01-23 13:52 | XR_ITS ---
XR hip RT 2-3V w/pelvis HISTORY: Follow-up hip replacement ITS.REASON: RT total hip sx 12/10 ORDERING PHYSICIAN: Eduardo Rao MD PATIENT AGE: 77 years COMPARISON: 12/27/2017 FINDINGS: There has been bilateral total hip replacements with good alignment and no evidence of orthopedic complication. IMPRESSION: Status post total hip replacement with good alignment
== END ==
PROVIDERS: PCP Family Medicine; Visit Provider Orthopaedic Surgery
DX: Z96.641 Presence of right artificial hip joint (principal)
CPT/HCPCS: 73502

== ENCOUNTER → 2018-06-17 10:45 | Outpatient (CLI) | payer MEDICARE, SELFPAY ==
--- NOTE | 2018-06-17 10:52 | MM_ITS ---
MM Dig screening mamm BI w/CAD ORDERING PHYSICIAN : Lissett Hung PATIENT AGE: 78 years GENDER: Female COMPARISON: May 2017 bilateral mammogram May 2017, left mammogram and negative left breast ultrasound. . April 2015, March 2014 bilateral mammogram INDICATION: Routine screening. No hormones no new complaints. Noncontributory family history. HISTORY sheet notes Previous stereotactic biopsy both right and left breast TECHNIQUE: Standard CC and MLO images were obtained. R2 CAD reviewed. Additional CC and PA reviewed. FINDINGS: Moderately dense heterogeneous breast tissue pattern bilaterally This character breast pattern does decreases sensitivity mammography. Ultrasound can be useful compliment to augment mammography in breast of this increased density, particularly if any palpable areas arise. In breast of this increased density RIGHT BREAST:No significant new areas of concern. Bilateral follow-up in one year. Two Metallic MicroMark marker clips from previous percutaneous biopsy is seen at the deep lateral right breast. 3 small stable benign calcifications just anterior bases again noted and can be followed. . LEFT BREAST: Today's MLO view shows a dense area towards superior breast labeled X. This measures up to 14 mm diameter on MLO view.- More likely a summation shadow noting similar appearance seen dating back to 2017 MLO view,. Also note this density seems to dissipate on the cc view for the most part. However since significantly denser on today's MLO view would recommend follow-up additional spot views: MLO and 90 degrees views views of the superior left breast., Along with a cc spot view of the central breast. Ultrasound also recommended to further evaluate this area in this region and this dense somewhat difficult to evaluate breast. Again I tend to favor dense fibroglandular elements accentuated by summation shadow. Doubt significant underlying findings but it does warrant further evaluate ...... IMPRESSION: ......... Moderately Dense heterogeneous breast pattern bilaterally decreases sensitivity of mammography LEFT Mammogram:. Area of increased density superior left breast labeled X, as seen on today's MLO view.. Most likely summation shadow but does warrant further evaluation with Spot Views & Ultrasound LEFT breast, as prescribed in body of report RIGHT mammogram. Dense breast but no focal new areas of significant concern. Follow-up in one year on right. Previous percutaneous biopsy evident BI-RADS Category: 0 Need Additional Imaging Evaluation RECOMMENDED FOLLOW-UP: IMM - IMMEDIATE FOLLOW-UP RECOMMENDED (A letter has been sent to the patient regarding results of the study.)
== END ==
PROVIDERS: PCP Nurse Practitioner; Visit Provider Nurse Practitioner
DX: Z12.31 Encounter for screening mammogram for malignant neoplasm of breast (principal)
CPT/HCPCS: 77067

== ENCOUNTER → 2018-06-18 12:23 | Outpatient (CLI) | payer MEDICARE, SELFPAY ==
--- NOTE | 2018-06-18 12:35 | XR_ITS ---
XR hip RT 2-3V w/pelvis HISTORY: Follow-up fracture/ORIF ITS.REASON: sp RT [place]; sx 12/10/17 ORDERING PHYSICIAN: Eduardo Rao MD PATIENT AGE: 78 years COMPARISON: 01/23/2018 FINDINGS: Total hip prosthesis is present on the right which is in good alignment. There is some mild heterotopic bone formation along the greater trochanter. No evidence of hardware complication. There are healing fractures of the right superior and inferior pubic rami on the right. These have developed since the previous exam. IMPRESSION: 1. Good alignment status post total hip prosthesis on the right. 2. Healing fractures of the right superior and inferior pubic rami nondisplaced
--- NOTE | 2018-06-18 12:35 | XR_ITS ---
XR hip LT 2-3V w/pelvis HISTORY: Follow-up left hip replacement ITS.REASON: sp LT [place]; dos 09/24/17 ORDERING PHYSICIAN: Eduardo Rao MD PATIENT AGE: 78 years COMPARISON: 01/23/2018 FINDINGS: Status post total left hip replacement with good alignment. There is heterotopic bone formation along the greater trochanter. IMPRESSION: Good alignment status post total left hip prosthesis placement
== END ==
PROVIDERS: PCP Nurse Practitioner; Visit Provider Orthopaedic Surgery
DX: Z96.641 Presence of right artificial hip joint (principal); Z96.642 Presence of left artificial hip joint
CPT/HCPCS: 73502

== ENCOUNTER → 2018-06-25 10:02 | Outpatient (CLI) | payer MEDICARE, SELFPAY ==
--- NOTE | 2018-06-25 10:03 | XR_ITS ---
XR DEXA axial skeleton HISTORY: ITS.REASON: fractures ORDERING PHYSICIAN: Eduardo Rao MD PATIENT AGE: 78 years COMPARISON: None FINDINGS: The BMD measured at the AP spine L1-L4 is 0.858 g/cm squared with a T score of -2.7. This is considered Osteoporotic according to the World Health Organization criteria. Fracture risk is High. Treatment is advised. IMPRESSION: Osteoporosis with high fracture risk. Recommend treatment and follow-up exam in one year
== END ==
PROVIDERS: PCP Nurse Practitioner; Visit Provider Orthopaedic Surgery
DX: S32.511D Fracture of superior rim of right pubis, subsequent encounter for fracture with routine healing (principal); Z78.0 Asymptomatic menopausal state
CPT/HCPCS: 77080

== ENCOUNTER → 2018-07-04 12:38 | Outpatient (CLI) | payer MEDICARE, SELFPAY ==
--- NOTE | 2018-07-04 13:18 | US_ITS ---
MM US breast LT complete Dig mamm DX unilat LT CAD Ordering Physician: Isak Goodson MD Patient Age: 78 years Female COMPARISON: May 2017, May 2018. April 2015. May 2017 ultrasound exam also utilized INDICATION: Further evaluation of asymmetric areas of density upper outer quadrant left breast noted on 06/17/2018 recent screening mammogram ======== DIAGNOSTIC MAMMOGRAM WITH SPOT VIEWS . Spot CC and MLO as well as a rolled cc views left breast. A full 90 degree view included. Dense heterogeneous breast pattern which decreases sensitivity of mammography. No dominant mass nor suspicious calcifications. Minimal nodularity seen here at the left breast is similar to previous studies from May 2017, May 2018. No unique new features on today's mammography review. However mammography of decreased sensitivity in breast of this increased heterogeneous character and density. Ultrasound will be performed to further evaluate. ======== ULTRASOUND LEFT BREAST including axillary survey No significant suspicious mass or nodule. There is a nearly 10 mm x 3 mm height a elongated somewhat spindle-shaped hypoechoic area at 6:00 left breast which was suspected to be a fluid-filled duct with some debris. Low suspicion area that can be followed. More likely ductal Suggest follow-up left mammogram and left breast ultrasound in 6 months since this area was not seen on the 2018 ultrasound exam IMPRESSION: Left Mammogram images show no discrete mass or nodule. (However the dense heterogeneous breast pattern decreases sensitivity of mammography) Left breast Ultrasound was then performed. No significant suspicious findings with ultrasound but there is a elongated hypoechoic area prominent duct feature seen behind the nipple at 6:00 (up to 1 cm length x 3 mm AP). Probable benign ductal area with fluid and some debris. However Since it is more evident than on previous study I would suggest a follow-up left mammogram left breast ultrasound 6 months. BI-RADS Category: 3 Probably Benign Finding Short Term Follow-up RECOMMENDED FOLLOW-UP: 6M 6 MONTH FOLLOW-UP Follow up left mammogram and left breast ultrasound 6 months recommended A letter has been sent to the patient regarding results of the study.)
== END ==
PROVIDERS: PCP Family Medicine; Visit Provider Family Medicine
DX: R92.8 Other abnormal and inconclusive findings on diagnostic imaging of breast (principal)
CPT/HCPCS: 76641; 77065

== ENCOUNTER 2018-09-03 08:35 | Outpatient (CLI) | payer MEDICARE, SELFPAY ==
[2018-09-03 08:59] VITALS: PULSE 82; RESP 18; TEMP 36.5; O2SAT 99
[2018-09-03 09:30] VITALS: BP 152/74; PULSE 79; RESP 18; TEMP 36.6; O2SAT 98
--- NOTE | 2018-09-03 09:38 | PC.NURSE ---
09/03/18 0930 Pt denies any c/o after receiving Prolia injection. L upper arm injection site clear with no problems noted. Pt given package insert and s/s reaction/problems discussed with pt with pt verbalizing understanding of all inst given. Pt also given brochure/pamphlet and next 6 month appt scheduled
== END 2018-09-03 09:30 | disposition home or self-care (01) ==
LOC: INF 08:35
PROVIDERS: Visit Provider Nurse Practitioner
DX: M80.00XA Age-related osteoporosis with current pathological fracture, unspecified site, initial encounter for fracture (principal)
CPT/HCPCS: 96372; J0897

== ENCOUNTER → 2018-12-19 09:46 | Outpatient (CLI) | payer MEDICARE, SELFPAY ==
--- NOTE | 2018-12-19 09:56 | XR_ITS ---
PROCEDURE: XR HIP RT 2-3V W/PELVIS CLINICAL INDICATION: sp RT hip arthroplasty Follow-up right hip replacement COMPARISON: HIPCMLT XR hip LT 2-3V w/pelvis from 06/18/2018 FINDINGS: S/p total hip replacement on the right. There is good alignment. There is some heterotopic ossification along the greater trochanteric region. There are old fractures of the right superior and inferior pubic rami. IMPRESSION: Status post right hip replacement. Good alignment. No change with no acute finding Dictated by: Jules Hay MD 12/19/2018 13:20 Electronically signed by Jules Hay MD in [place] 12/19/2018 13:20
--- NOTE | 2018-12-19 09:56 | XR_ITS ---
PROCEDURE: XR HIP LT 2-3V W/PELVIS CLINICAL INDICATION: sp LT hip arthroplasty Follow-up arthroplasty COMPARISON: HIPCMLT XR hip LT 2-3V w/pelvis from 06/18/2018 FINDINGS: Status post total left hip replacement with good alignment and no evidence of orthopedic complication. Extra calcific density is present along the greater trochanter and could be related to an old avulsion injury or heterotopic ossification. IMPRESSION: No change status post left hip replacement Dictated by: Jules Hay MD 12/19/2018 13:18 Electronically signed by Jules Hay MD in [place] 12/19/2018 13:18
== END ==
PROVIDERS: PCP Nurse Practitioner; Visit Provider Orthopaedic Surgery
DX: Z96.643 Presence of artificial hip joint, bilateral (principal)
CPT/HCPCS: 73502

== ENCOUNTER → 2019-01-06 13:14 | Outpatient (CLI) | payer MEDICARE, SELFPAY ==
--- NOTE | 2019-01-06 13:26 | US_ITS ---
PROCEDURE: MM DIG MAMM DX UNILAT LT CAD CLINICAL INDICATION: 6 MONTH F/U Six-month follow-up abnormal mammogram and ultrasound COMPARISON: DXLT MM Dig mamm DX unilat LT CAD from 06/12/2017 [facility]BI MM Dig screening mamm BI w/CAD from 06/17/2018 DXLT MM Dig mamm DX unilat LT CAD from 07/04/2018 BREASTLT US breast LT complete from 07/04/2018 US BREAST LT COMPLETE from 01/06/2019 TECHNIQUE: Standard images performed along with spot compression views rolled views and left breast ultrasound FINDINGS: . The there is average fibroglandular tissue. No discrete mass or malignant-appearing microcalcification is evident. There is some asymmetric tissue in the inferior aspect of the left breast unchanged. Asymmetric density is noted in the lateral aspect of the left breast which does appear to compress out on focal spot compression views. Left breast ultrasound: There remains a spindle shaped hypoechoic area in the 6 o'clock region of the left breast parallel with the chest wall and may represent fibroglandular tissue. No suspicious nodules are evident. IMPRESSION: Benign findings. No evidence of malignancy. Recommend resume screening mammogram June 2019 BI-RAD Category: 2 Benign Finding(s) FOLLOW-UP: 6M 6Month Follow-up (A letter has been sent to the patient regarding results of the study.) Dictated by: Jules Hay MD 01/10/2019 13:21 Electronically signed by Jules Hay MD in [place] 01/10/2019 13:21
== END ==
PROVIDERS: PCP Family Medicine; Visit Provider Nurse Practitioner
DX: R92.8 Other abnormal and inconclusive findings on diagnostic imaging of breast (principal)
CPT/HCPCS: 76641; 77065

== ENCOUNTER 2019-03-11 08:41 | Outpatient (CLI) | payer MEDICARE, SELFPAY ==
[2019-03-11 08:55] VITALS: BP 133/66; PULSE 77; RESP 18; O2SAT 98
== END 2019-03-11 08:55 | disposition home or self-care (01) ==
LOC: INF 08:41
PROVIDERS: Visit Provider Nurse Practitioner
DX: M81.0 Age-related osteoporosis without current pathological fracture (principal)
CPT/HCPCS: 96372; J0897

== ENCOUNTER 2019-09-12 08:35 | Outpatient (CLI) | payer MEDICARE, SELFPAY ==
[2019-09-12 08:45] VITALS: BP 139/73; PULSE 81; RESP 18; TEMP 36.6; O2SAT 100
[2019-09-12 09:15] VITALS: BP 130/76; PULSE 78; RESP 20; TEMP 36.6; O2SAT 99
== END 2019-09-12 09:15 | disposition home or self-care (01) ==
LOC: INF 08:35
PROVIDERS: Visit Provider Nurse Practitioner
DX: M81.0 Age-related osteoporosis without current pathological fracture (principal)
CPT/HCPCS: 96372; J0897

== ENCOUNTER 2020-03-16 10:46 | Outpatient (CLI) | payer MEDICARE, SELFPAY ==
[2020-03-16 11:05] VITALS: BP 152/73; PULSE 85; RESP 18; TEMP 36.5; O2SAT 97
[2020-03-16 11:19] VITALS: BP 138/72; PULSE 79; RESP 16; O2SAT 97
== END 2020-03-16 11:25 | disposition home or self-care (01) ==
LOC: INF 10:46
PROVIDERS: Visit Provider Nurse Practitioner
DX: M80.00XA Age-related osteoporosis with current pathological fracture, unspecified site, initial encounter for fracture (principal)
CPT/HCPCS: 96372; J0897

== ENCOUNTER 2020-09-14 08:45 | Outpatient (CLI) | payer MEDICARE, SELFPAY ==
[2020-09-14 08:51] VITALS: BP 147/75; PULSE 77; RESP 18; TEMP 36.5; O2SAT 98
== END 2020-09-14 09:10 | disposition home or self-care (01) ==
LOC: INF 08:45
PROVIDERS: Visit Provider Family Medicine
DX: M81.0 Age-related osteoporosis without current pathological fracture (principal)
CPT/HCPCS: 96372; J0897

== ENCOUNTER → 2020-10-06 07:46 | Outpatient (CLI) | payer MEDICARE, SELFPAY ==
--- NOTE | 2020-10-06 07:54 | MM_ITS ---
PROCEDURE INFORMATION: Exam: MG Screening 3D Mammography Exam date and time: 10/06/2020 7:54 AM Age: 80 years old Clinical indication: Encounter for screening mammogram for malignant neoplasm of breast TECHNIQUE: Imaging protocol: Screening tomosynthesis and 2D mammography including computer-aided detection (CAD) when performed. COMPARISON: 1. MG MM DIG MAMM DX UNILAT LT CAD 01/06/2019 2:04 PM 2. MG DXLT MM Dig mamm DX unilat LT CAD 07/04/2018 1:30 PM FINDINGS: MAMMOGRAPHY: Breast composition: The breast tissue is heterogeneously dense, which may obscure small masses. Mass: None. Architectural distortion: None. Calcifications: No suspicious calcifications. Asymmetric density: None. Skin thickening: None. Axillary adenopathy: None. IMPRESSION: No mammographic evidence of malignancy. Annual screening is recommended unless otherwise clinically indicated. ASSESSMENT: BI-RADS Category 1: Negative
== END ==
PROVIDERS: PCP Family Medicine; Visit Provider Family Medicine
DX: Z12.31 Encounter for screening mammogram for malignant neoplasm of breast (principal)
CPT/HCPCS: 77063; 77067

== ENCOUNTER 2021-03-16 08:39 | Outpatient (CLI) | payer MEDICARE, SELFPAY ==
[2021-03-16 08:57] VITALS: BP 113/61; PULSE 86; RESP 20; TEMP 36.3; O2SAT 97
== END 2021-03-16 09:18 | disposition home or self-care (01) ==
LOC: INF 08:40
PROVIDERS: PCP Family Medicine; Visit Provider Family Medicine
DX: M81.0 Age-related osteoporosis without current pathological fracture (principal)
CPT/HCPCS: 96372; J0897

== ENCOUNTER 2021-09-14 08:38 | Outpatient (CLI) | payer MEDICARE, SELFPAY ==
[2021-09-14 08:54] VITALS: BP 124/71; PULSE 76; RESP 18
== END 2021-09-14 09:06 | disposition home or self-care (01) ==
LOC: INF 08:40
PROVIDERS: PCP Nurse Practitioner Family; Visit Provider Nurse Practitioner Family
DX: M81.0 Age-related osteoporosis without current pathological fracture (principal)
CPT/HCPCS: 96372; J0897

== ENCOUNTER → 2021-10-13 07:49 | Outpatient (CLI) | payer MEDICARE, SELFPAY ==
--- NOTE | 2021-10-13 07:53 | MM_ITS ---
PROCEDURE INFORMATION: Exam: MG Bilateral Screening 3D Mammography Exam date and time: 10/13/2021 7:58 AM Age: 81 years old Clinical indication: Screening examination TECHNIQUE: Imaging protocol: Bilateral Screening tomosynthesis and 2D mammography including computer-aided detection (CAD) when performed. COMPARISON: 1. MG MM DIG SCREENING MAMM BI W/CAD 10/06/2020 8:00 AM 2. MG MM DIG MAMM DX UNILAT LT CAD 01/06/2019 2:04 PM FINDINGS: MAMMOGRAPHY: Breast composition: The breasts are heterogeneously dense, which may obscure small masses. Mass: None. Architectural distortion: None. Calcifications: No suspicious calcifications. Asymmetric density: None. Skin thickening: None. Axillary adenopathy: None. IMPRESSION: No mammographic evidence of malignancy. Annual screening is recommended unless otherwise clinically indicated. ASSESSMENT: BI-RADS Category 1: Negative
== END ==
PROVIDERS: PCP Nurse Practitioner Family; Visit Provider Nurse Practitioner Family
DX: Z12.31 Encounter for screening mammogram for malignant neoplasm of breast (principal)
CPT/HCPCS: 77063; 77067

== ENCOUNTER 2022-03-20 08:34 | Outpatient (CLI) | payer MEDICARE, SELFPAY ==
[2022-03-20 08:40] VITALS: BP 143/73; PULSE 76; RESP 18; O2SAT 98
[2022-03-20 09:00] VITALS: BP 143/73; PULSE 76; RESP 18; O2SAT 98
== END 2022-03-20 09:00 | disposition home or self-care (01) ==
LOC: INF 08:36
PROVIDERS: PCP Nurse Practitioner Family; Visit Provider Nurse Practitioner Family
DX: M81.0 Age-related osteoporosis without current pathological fracture (principal)
CPT/HCPCS: 96372; J0897

== ENCOUNTER → 2022-04-28 09:15 | Outpatient (CLI) | payer MEDICARE, SELFPAY ==
--- NOTE | 2022-04-28 09:19 | XR_ITS ---
FINAL REPORT TECHNIQUE: Bone densitometry calculations of the lumbar spine and right forearm were obtained. CLINICAL HISTORY: . post menopausal FINDINGS: DEXA BONE DENSITY AXIAL SKELETON Using L1-4, the bone mineral density of the spine is 0.840 g/cm2, corresponding to T-score of -1.9. Using the right forearm, the bone mineral density of the distal 1/3 is 0.695 g/cm2, corresponding to T-score of 0.0. NOTE: T-score: Standard deviation compared with peak bone mass of young adult mean. *Following the recommendations of the International Society of Bone densitometry, classification of hip BMD is based on the lower of two T-scores; total hip or femoral neck. IMPRESSION: Diminished bone mineral density of the lumbar spine consistent with osteopenia. Normal bone mineral density of the right forearm. Reviewed, Interpreted and Dictated by Jax Ceballos MD Transcribed by Perlita Rose Authenticated and [facility]
== END ==
PROVIDERS: PCP Nurse Practitioner Family; Visit Provider Nurse Practitioner Family
DX: M81.0 Age-related osteoporosis without current pathological fracture (principal)
CPT/HCPCS: 77080

== ENCOUNTER 2022-08-13 15:48 | Emergency (ER) | payer MEDICARE, SELFPAY ==
[2022-08-13 15:55] VITALS: BP 199/91; PULSE 91; RESP 34; TEMP 36.9; O2SAT 95; BMI 20.5
--- NOTE | 2022-08-13 16:02 | XR_ITS ---
PROCEDURE INFORMATION: Exam: XR Chest Exam date and time: 08/13/2022 4:01 PM Age: 82 years old Clinical indication: Cough and shortness of breath; Additional info: Sob/cough TECHNIQUE: Imaging protocol: Radiologic exam of the chest. Views: 2 views. COMPARISON: CR CXR2V XR chest 2V 09/19/2017 3:53 PM FINDINGS: Lungs: Unremarkable. No consolidation. Pleural spaces: Unremarkable. No pleural effusion. No pneumothorax. Heart/Mediastinum: Unremarkable. No cardiomegaly. Bones/joints: Unremarkable. IMPRESSION: No acute findings.
[2022-08-13 16:21] VITALS: BP 199/91; PULSE 91; RESP 34; TEMP 36.9; O2SAT 95
--- NOTE | 2022-08-13 16:23 | EXP.UTC ---
Discharge Plan Disposition Patient Disposition: Home, Self-Care Condition: Good Prescriptions Prescriptions: New prednisone 10 mg tablet 10 mg PO BID 5 Days Qty: 10 0RF azithromycin [Zithromax Z-Lloyd] 250 mg tablet See Rx Instructions .ROUTE .COMPLEX 5 Days Qty: 6 0RF Rx Instructions: For 250 mg dose pack: take 500 mg today (day 1), then 250 mg for 4 days (days 2-5) guaifenesin [Mucinex] 600 mg tablet extended release 12hr 600 mg PO BID PRN (Reason: cough) Qty: 20 0RF No Action lisinopril 5 mg tablet 5 mg PO DAILY calcium carbonate-vitamin D3 [Calcium 500 + D] 500 mg(1,250mg) -200 unit tablet 1 tab PO BID triamterene-hydrochlorothiazid 37.5-25 mg tablet 1 tab PO DAILY levothyroxine 88 mcg capsule 88 mcg PO DAILY Prolia 60 mg/mL syringe 60 mg SQ [id number] aspirin 325 MG tablet 325 mg PO DAILY pseudoephedrine HCl 30 MG tablet 30 mg PO Q6H Referrals Follow up/Referrals: Indira Loja APRN [Primary Care Provider] - See instructions Activity Restrictions/Add. Instructions Additional Instructions/Restrictions: Start antibiotic today. Be sure to complete entire prescription even if feeling better Monitor temp. Tylenol every 4 hours as needed and / or ibuprofen every 6 hours as needed ( As long as your primary care physician has told you that it ok to take both. For fever/aches/pains ER if no less than 101 despite Tylenol or Motrin Humidifier/vaporizer or hot steamy shower Inhaler every 4-6 hours as needed like we discussed. If unsure how to use it, ask pharmacist to demonstrate how. Should help open airways and improve cough, wheezing, and shortness of breath Mucinex during the day for your cough and cough suppressant only at night. Be sure to drink lots of water. Insurance may not cover a prescriptions for mucinex. Might be cheaper to get 400mg tablets and take 2 tablet in the morning, mid-day and evening with lots of water. *Start steroid today. Helps with inflammation therefore, cough and wheezing. Follow directions on the package. Reviewed side effects. Patient reports taking them before. Follow up IMMEDIATELY for new or worsening of symptoms OR no noticeable improvement over the next 48-72 hours. 911 immediately for any life threatening symptoms such as chest pain or difficulty breathing Clinical Impressions Clinical Impression: Bronchitis Instructions Patient Instructions: Acute Bronchitis, Albuterol [place]charge ED [place] Juarez [facility] [place] [facility] [place] General Stated complaint: stella,SOA Mode of Arrival: Ambulatory Source of Information: Patient Limitations: No Limitations Time Seen by Provider: 08/13/22 16:23 Description of Symptoms (Recalled from Triage Doc. by RN): PATIENT C/O PRODUCTIVE COUGH, SOA AND CHEST CONGESTION THAT STARTED TODAY HEENT Symptoms (Recalled from RN notes): No Resp Symptoms (Recalled from RN notes): Yes Skin Symptoms (Recalled from RN notes): No MS Symptoms (Recalled from RN notes): No Functional Status (Recalled from RN notes): WNL History of Present Illness Provider Complaint: Patient states that she use to smoke years ago but has been stopped for years she has been working outside for the last couple of days weedeating and cutting grass and has been having sinus congestion and pressure but she gets that alot and she has been taking sudafed States that today she started with cough and chest congestion and when she would get coughing made her feel SOA States that she does cough up some mucous at times Related Data Home Medications Medication Instructions Recorded Confirmed calcium carbonate 500 mg-vitamin 1 tab PO BID Supplement 09/06/17 03/20/22 D3 5 mcg (200 unit) tablet (Calcium 500 + D) levothyroxine 88 mcg capsule 88 mcg PO DAILY thyroid 09/06/17 03/20/22 lisinopril 5 mg tablet 5 mg PO DAILY Hypertension 09/06/17 03/20/22 triamterene 37.5 1 tab PO DAILY Hyper
[2022-08-13 16:28] VITALS: RESP 23; O2SAT 100
== END 2022-08-13 17:05 | disposition home or self-care (01) ==
PROVIDERS: Emergency Provider Nurse Practitioner; PCP Nurse Practitioner Family
DX: J20.9 Acute bronchitis, unspecified (principal); R06.02 Shortness of breath; I10 Essential (primary) hypertension; E03.9 Hypothyroidism, unspecified; Z87.891 Personal history of nicotine dependence
CPT/HCPCS: 71046; 96372; 99204; 99212; G0463

== ENCOUNTER 2022-08-15 06:56 | Observation (INO) | payer MEDICARE, OTHER, SELFPAY ==
[2022-08-15] VITALS (30 sets, daily range): BP systolic 85–206; BP diastolic 51–143; PULSE 65–92; RESP 16–24; TEMP 36.7–36.9; O2SAT 92–100; BMI 21.2; BMI 23.3
--- NOTE | 2022-08-15 07:03 | ECG_ITS ---
APPROVED REPORT Exam: Resting ECG HR:92 bpm ECG Measurements Heart Rate 92 AXES WY 140 P 92 QRSd 94 QRS 142 QT 342 T 105 QTc 392 Conclusion SINUS RHYTHM Right axis deviation NORMAL ECG UNCONFIRMED REPORT Electronically signed by : Isak Jean MD 08/15/2022 20:10:22
--- NOTE | 2022-08-15 07:09 | PC.NURSE ---
dr chen at bedside
--- NOTE | 2022-08-15 07:15 | XR_ITS ---
FINAL REPORT CLINICAL HISTORY: shortness of breath, congestion COMPARISON: 08/13/2022 FINDINGS: SINGLE-VIEW CHEST The heart size is normal. The mediastinum is normal. There is bronchial wall thickening consistent with bronchitis. There is mild bibasilar atelectasis or scar. There are degenerative changes in the shoulders. There is no pneumothorax. IMPRESSION: Bronchitis. Reviewed, Interpreted and Dictated by Pascual Mcdonnell III, MD Transcribed by Joyce Walker Authenticated and [facility]
[2022-08-15 07:26] LABS: Alanine Aminotransferase 19 U/L (12-78); Albumin Level 4.3 g/dl (3.5-5.0); Albumin/Globulin Ratio 1.3 (1.1-1.8); Alkaline Phosphatase 76 U/L (38-126); Anion Gap 16.1 mEq/L (5-15); Aspartate Amino Transferase 35 U/L (14-36); Bilirubin,Total 0.6 mg/dl (0.2-1.3); Blood Urea Nitrogen 29 mg/dl (7-17); Calcium 9.2 mg/dl (8.4-10.2); Carbon Dioxide 26 mmol/L (22.0-30.0); Chloride 93 mmol/L (98-107); Creatinine Clearance Estimated 38 mL/min (50-200); Estimated Glomerular Filt Rate 53 ml/min (>60); GFR (African American) 64 ML/MIN (>60); Globulin 3.3 g/dL (1.3-3.2); Glucose 115 mg/dl (74-100); Potassium 4.1 mmoL/L (3.5-5.1); Sodium 131 mmol/L (136-145); Total Protein,Serum 7.6 g/dl (6.3-8.2)
--- NOTE | 2022-08-15 07:26 | PC.NURSE ---
RESPIRATORY NOTIFIED OF ABG ORDER
[2022-08-15 07:27] LABS: Basophils # 0.1 K/mm3 (0-0.2); Basophils % 0.6 % (0.1-2.0); Eosinophils % 0.3 % (0.1-12.0); Hematocrit 41.5 % (37.0-47.0); Hemoglobin 13.7 g/dL (12.2-16.2); Lymphocytes # 1.5 K/mm3 (0.7-4.5); Lymphocytes % 13.6 % (10-50); Mean Corpuscular HGB Conc 32.9 g/dL (31.8-35.4); Mean Corpuscular Hemoglobin 30.2 pg (27.0-31.2); Mean Corpuscular Volume 91.8 fl (81-99); Mean Platelet Volume 7.5 fl (7.4-10.4); Monocytes # 0.9 K/mm3 (0.1-1.0); Monocytes % 8.5 % (1.7-9.3); Neutrophils # 8.5 K/mm3 (1.8-7.8); Neutrophils % 76.9 % (37.0-80.0); Platelet Count 312 K/mm3 (142-424); Red Blood Count 4.53 M/mm3 (4.20-5.40); Red Cell Distribution Width 13.3 % (11.5-17.5); White Blood Count 11.1 K/mm3 (4.8-10.8)
--- NOTE | 2022-08-15 07:27 | PC.NURSE ---
RESPIRATORY AT BEDSIDE
--- NOTE | 2022-08-15 07:33 | HMH.EDSOB ---
Discharge Plan Disposition Patient Disposition: Still a Patient Clinical Impressions Clinical Impression: Elevated troponin, Acute exacerbation of chronic obstructive airways disease Discharge ED Provider: Sarah (ED)Eric Resp/SOB HPI General Chief Complaint: Shortness of Breath/Dyspnea Stated Complaint: SOA Time Seen by Provider: 08/15/22 07:33 Mode of Arrival: Wheelchair Source of Information: Patient and Medical Record Limitations: No Limitations Description of Symptoms (Recalled from ER Triage Doc. by RN): pt with increased shortness of breath since this weekend. audible wheezing, o2 sat 92% on room air History of Present Illness pt with increased sob with wheezing - no chest pain - MD Complaint: shortness of breath Onset (ago): day(s) Context: recent illness Severity: moderate Consistency/Duration: intermittent Known history of: COPD Associated symptoms: denies other symptoms Treatment prior to arrival: bronchodilator Related Data Home oxygen amount: none Home Medications Medication Instructions Recorded Confirmed calcium carbonate 500 mg-vitamin 1 tab PO BID Supplement 09/06/17 08/15/22 D3 5 mcg (200 unit) tablet (Calcium 500 + D) levothyroxine 88 mcg capsule 88 mcg PO DAILY thyroid 09/06/17 08/15/22 lisinopril 5 mg tablet 5 mg PO DAILY Hypertension 09/06/17 08/15/22 triamterene 37.5 1 tab PO DAILY Hypertension 09/06/17 08/15/22 mg-hydrochlorothiazide 25 mg tablet denosumab 60 mg/mL subcutaneous 60 mg SQ [id number] Osteoporosis 12/19/18 08/15/22 syringe (Prolia) aspirin 325 mg tablet 325 mg PO DAILY Heart disease 03/11/19 08/15/22 pseudoephedrine HCl 30 mg tablet 30 mg PO Q6H sinus problems 03/16/20 08/15/22 azithromycin 250 mg tablet 250 mg PO DAILY Infection 08/15/22 08/15/22 (Zithromax Z-Lloyd) prednisone 10 mg tablet 10 mg PO BID upper resp infection 08/15/22 08/15/22 Previous Rx's Medication Instructions Recorded guaifenesin 600 mg tablet, 600 mg PO BID PRN cough #20 tabs 08/13/22 extended release 12 hr (Mucinex) Allergies Allergy/AdvReac Type Severity Reaction Status Date / Time No Known Allergies Allergy Verified 09/06/20 09:14 [facility] Disclaimer: The information contained in this section may have been updated after the patient was seen, as this information can be updated by other users. Medical History Anemia Arthritis Cataracts, both eyes History of sinus problem Hypertension Hypothyroidism Surgical History H/O colonoscopy Family History No significant family history Social History Smoking Status: Former smoker second hand exposure: Yes alcohol intake: never substance use type: denies use current occupational status: retired Travel in the last 8 weeks: Inside the [place] household members: none housing: house current occupational exposures/hazards: No caffeine: Yes ROS Obtained: Yes All systems reviewed & no additional complaints except as documented Physical Exam General General appearance: alert Head Head exam: normocephalic Eye Eye exam: Present PERRL and EOMI ENT ENT exam: Present mucous membranes moist Neck Neck exam: Present trachea midline Respiratory Respiratory exam: Absent respiratory distress Cardiovascular Cardiovascular exam: Present regular rate Abdominal Exam Abdominal exam: Present soft; Absent tenderness or guarding Extremities Exam Extremities exam: Present full ROM Neurological Exam Neurological exam: Present alert, oriented X3 and CN II-XII intact Psychiatric Psychiatric exam: Present normal affect Skin Skin exam: Absent rash Medical Decision Making Medical Records Medical records reviewed: Yes I reviewed the patient's medical records. Rodrigue Inquiry Pt receiving controlled substance:
--- NOTE | 2022-08-15 07:38 | PC.NURSE ---
DR RAMESH AT BEDSIDE TO REEVALUATE PT
--- NOTE | 2022-08-15 07:38 | PC.NURSE ---
Dr. Smith at
--- NOTE | 2022-08-15 07:42 | PC.NURSE ---
XR AT BEDSIDE
[2022-08-15 07:43] LABS: ABG PCO2 29.8 mmhg (35.0-45.0); ABG PH 7.44 mmol/L (7.35-7.45)
[2022-08-15 07:44] LABS: Troponin I 0.09 ng/ml (0.00-0.034)
[2022-08-15 07:44] LABS: ABG Base Excess -4.4 mmol/L (-2.4-2.3); ABG HCO3 19.8 mmhg (22.0-26.0); ABG Oxygen Saturation 96 % (90-100); ABG PO2 74.8 mmhg (80-100); ABG TCO2 20.7 mmhg (23-27); Oxygen ROOM AIR %; Source Right Brachial
--- NOTE | 2022-08-15 08:17 | ECG_ITS ---
APPROVED REPORT Exam: Resting ECG HR:81 bpm ECG Measurements Heart Rate 81 AXES IN 143 P 86 QRSd 85 QRS 47 QT 369 T 80 QTc 406 Conclusion SINUS RHYTHM Bi- ATRIAL abnormality MODERATE ST DEPRESSION [0.05+ mV ST DEPRESSION] ABNORMAL ECG UNCONFIRMED REPORT Electronically signed by : Isak Jean MD 08/15/2022 20:09:47
--- NOTE | 2022-08-15 08:27 | PC.NURSE ---
ROUNDED ON PT, NO NEEDS AT THIS TIME. FAMILY AT BEDSIDE
--- NOTE | 2022-08-15 08:36 | PC.NURSE ---
rounded on pt no complaints at this time, visitor at bedside
--- NOTE | 2022-08-15 08:39 | PC.NURSE ---
DR RAMESH AT BEDSIDE TO UPDATE PT
--- NOTE | 2022-08-15 08:55 | PC.NURSE ---
Joyce Brown rounded on pt
--- NOTE | 2022-08-15 08:58 | PC.NURSE ---
pt sitting up on side of bed, call gonzalez in reach, family at BS, updated pt will repeat blood work at 1030
--- NOTE | 2022-08-15 10:06 | PC.NURSE ---
REPEAT TROP SENT TO LAB
--- NOTE | 2022-08-15 10:10 | PC.NURSE ---
rounded on pt unkooked her from fluid and bp machine so she could use the restroom, visitors at bedside
--- NOTE | 2022-08-15 10:22 | PC.NURSE ---
pt reports CHAVEZ when walking back to room from bathroom. SaO2 95 % on RA when back to room. After sitting for a few minutes pt SaO2 98% on RA and feeling better.
[2022-08-15 10:35] LABS: Troponin I 0.12 ng/ml (0.00-0.034)
--- NOTE | 2022-08-15 11:07 | PC.NURSE ---
ultrasound at bedside
--- NOTE | 2022-08-15 11:30 | PC.NURSE ---
hadley anderson with cardiology at BS
--- NOTE | 2022-08-15 11:48 | PC.NURSE ---
per hadley anderson pt will go to medical lab director today, there is one case ahead of pt. hadley Anderson gave verbal order for aspirin, states no loading dose of brillinta. notified dr. chen of the above.
--- NOTE | 2022-08-15 11:55 | EXP.CARD.CON ---
History of Present Illness History of Present Illness Consult date: 08/15/22 Requesting physician: Eric Smith Consult reason: shortness of breath Chief complaint: Shortness of air, elevated troponin Additional Medical History:: 1. Ex-smoker more than 1 year 2. Hard of hearing 3. Hypertension 4. Prior hip surgery 5. Shortness of air/bronchitis with elevated troponin, 08/15/2022 History of present illness: 82-year-old white female who has been working in her yard over the last 3 days with increasing complaints of shortness of breath and sinus congestion related to grass and pollen, despite taking Sudafed which has helped some, presented to the emergency department for a breathing treatment. Chest x-ray did reveal evidence of bronchitis and lab work showed mildly elevated troponin with a second troponin showing increasing level up to 0.12. Patient continues to deny any chest pain. Preliminary echocardiogram today shows preserved ejection fraction with only mild valvular disease. EKG shows sinus rhythm with ST segment depression of less than 1.5 mm in the inferior and lateral leads with slight ST elevation in aVL. No significant change at the second EKG. [facility] Disclaimer: The information contained in this section may have been updated after the patient was seen, as this information can be updated by other users. Medical History (Updated 08/15/22 @ 12:00 by KALA Chase) Anemia Arthritis Cataracts, both eyes History of sinus problem Hypertension Hypothyroidism Surgical History H/O colonoscopy Family History No significant family history Social History Smoking Status: Former smoker second hand exposure: Yes alcohol intake: never substance use type: denies use current occupational status: retired Travel in the last 8 weeks: [place] the [place] household members: none housing: house current occupational exposures/hazards: No caffeine: Yes Review of Systems Review of Systems Review of systems:: pertinent systems reviewed and negative unless documented below *Cardiovascular Cardiovascular: Denies chest pain, Reports dyspnea and Reports dyspnea on exertion *Respiratory Respiratory: Reports cough, Reports dyspnea and Reports dyspnea on exertion Exam Data for Last 24 hours Vital signs and Labs for Last 24 Hours: Temp Pulse Resp BP Pulse Ox 98.0 F 84 24 158/68 H 98 08/15/22 06:56 08/15/22 11:31 08/15/22 06:56 08/15/22 11:31 08/15/22 11:31 Laboratory Results - last 24 hr 08/15/22 07:02: WBC 11.1 H, RBC 4.53, Hgb 13.7, Hct 41.5, MCV 91.8, MCH 30.2, MCHC 32.9, RDW 13.3, Plt Count 312, MPV 7.5, Neut % (Auto) 76.9, Lymph % (Auto) 13.6, Cobb % (Auto) 8.5, Eos % (Auto) 0.3, Baso % (Auto) 0.6, Neut # (Auto) 8.5 H, Lymph # (Auto) 1.5, Cobb # (Auto) 0.9, Eos # (Auto) 0.0, Baso # (Auto) 0.1 08/15/22 07:02: Sodium 131 L, Potassium 4.1, Chloride 93 L, Carbon Dioxide 26, Anion Gap 16.1 H, BUN 29 H, Creatinine 1.00, Estimated Creat Clear 38, Estimated GFR 53 L, Est GFR ( Amer) 64, Glucose 115 H, Calcium 9.2, Total Bilirubin 0.6, AST 35, ALT 19, Alkaline Phosphatase 76, Total Protein 7.6, Albumin 4.3, Globulin 3.3 H, Albumin/Globulin Ratio 1.3 08/15/22 07:02: Troponin I 0.09 H 08/15/22 07:43: Specimen Source Right brachial, O2 % Room air, ABG pH 7.44, ABG pCO2 29.8 L, ABG pO2 74.8 L, ABG HCO3 19.8 L, ABG Total CO2 20.7 L, ABG O2 Saturation 96, ABG Base Excess -4.4 L, Jules Test N/a 08/15/22 10:04: Troponin I 0.12 H I & O for Last 24 hours: Intake & Output 08/12/22 08/13/22 08/14/22 08/15/22 11:59 11:59 11:59 11:59 Weight 120 lb Constitutional Constitutional: no acute distress *Routine Respiratory Exam Respiratory: Present decreased breath sounds and rhonchi; Absent wheezes *Routine Cardiovascular Exam [facility]
--- NOTE | 2022-08-15 12:04 | PC.NURSE ---
helped pt to dress for cath procedure and she was using the restroom, mahamed is assisting back to bed, im going to go shave pt for cath procedure
--- NOTE | 2022-08-15 12:11 | PC.NURSE ---
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
--- NOTE | 2022-08-15 12:51 | PC.NURSE ---
negro from [facility] is here to get pt
--- NOTE | 2022-08-15 13:00 | IR_ITS ---
APPROVED REPORT Patient Location: [facility]: FAVIOLA Berman RT (R) PROCEDURES Left heart catheterization Left ventriculogram Selective coronary angiogram INDICATION Non-ST elevation myocardial infarction with elevated troponin Informed consent was obtained prior to the procedure. COMPLICATIONS None Estimated Blood Loss: Less than 10 ML TECHNIQUE One percent lidocaine used to anesthetize the right anterior aspect of the wrist. The right radial artery was accessed via the Seldinger technique. A 6 [place] sheath was placed in the right radial artery. 150 mg magnesium sulfate, 800 mcg of nitroglycerin, 1mg Lidocaine and 5000 U Heparin were given through the arterial sheath. The papa catheter was also used to perform left heart catheterization, left ventriculogram and selective coronary angiogram. At the end of the procedure the sheath was removed good hemostasis was achieved using Traclet band, patient was transferred to the postop holding area in stable condition. ANGIOGRAPHIC RESULTS The left main artery Is an ostial and distal smooth 10 to 20% stenosis The left anterior descending artery Has diffuse proximal and mid vessel 10 to 20% stenoses The circumflex artery Has diffuse 10 to 20% stenoses The right coronary artery Is dominant and has diffuse 20 and 30% stenoses The THORNE ventriculogram reveals Hyperdynamic ejection fraction estimated at 80% with apical hypertrophic obstruction The left ventricular end-diastolic pressure Elevated at 25 mmHg IMPRESSION Nonflow limiting coronary disease as described above Apical hypertrophic obstructive cardiomyopathy Elevated LVEDP Hyperdynamic ventricle PLAN 1. Coronary disease will be managed medically with risk factor modification 2. Patient's bronchitis/breathing abnormality likely stems from diastolic dysfunction which requires aggressive negative inotropic therapy 3. Recommend verapamil possibly combined with low-dose beta-blockers 4. Baby aspirin daily 5. Apical HOCM is best managed medically and does not qualify for AICD placement 6. Low-dose diuretics may benefit patient once on established verapamil and begin low-dose beta-parth Electronically signed by : Kvng Pace MD 08/15/2022 13:45:02
--- NOTE | 2022-08-15 14:48 | EXP.HP ---
History of Present Illness *Admission Date: 08/15/22 *Reason for visit:: SOA *History of present illness: Ms. Angela is a 82-year-old white female who presented to the ER today with complaint of shortness of breath and sinus congestion. She reports that she has been doing yard work over the past several days with increased complaint of shortness of breath and sinus congestion. Had related it to pollen. Despite taking Sudafed which is her normal to do at home, she was having consistent symptoms. Came to the ER for a breathing treatment. Chest x-ray revealed evidence of some bronchitis. Noted to have elevated troponin of 0.09, repeat 0.12. She denies any chest pain, orthopnea, palpitations. Cardiology was consulted in the ER, concern for ST segment depression in the inferior and lateral leads on EKG. Decision made to take patient to the Mail Truck Driver for further assessment of her elevated troponin. Echo obtained in the ER, showing preserved ejection fraction. Patient to be admitted to medicine after heart cath. On evaluation after arriving to the floor patient is alert and oriented x3. Denies any chest pain. Stable on room air. Afebrile. [facility] Disclaimer: The information contained in this section may have been updated after the patient was seen, as this information can be updated by other users. Medical History Anemia Arthritis Cataracts, both eyes History of sinus problem Hypertension Hypothyroidism Surgical History H/O colonoscopy Family History No significant family history Social History Smoking Status: Former smoker second hand exposure: Yes alcohol intake: never substance use type: denies use current occupational status: retired Travel in the last 8 weeks: [place] the [place] household members: none housing: house current occupational exposures/hazards: No caffeine: Yes Review of Systems Review of Systems Review of systems (narrative): 14 point review of systems performed, pertinent positives and negatives as per HPI Meds Home Medications and Allergies Home Medications Medication Instructions Recorded Confirmed Type calcium carbonate 500 mg-vitamin 1 tab PO BID Supplement 09/06/17 08/15/22 History D3 5 mcg (200 unit) tablet (Calcium 500 + D) levothyroxine 88 mcg capsule 88 mcg PO DAILY thyroid 09/06/17 08/15/22 History lisinopril 5 mg tablet 5 mg PO DAILY Hypertension 09/06/17 08/15/22 History triamterene 37.5 1 tab PO DAILY Hypertension 09/06/17 08/15/22 History mg-hydrochlorothiazide 25 mg tablet denosumab 60 mg/mL subcutaneous 60 mg SQ [id number] Osteoporosis 12/19/18 08/15/22 History syringe (Prolia) aspirin 325 mg tablet 325 mg PO DAILY Heart disease 03/11/19 08/15/22 History pseudoephedrine HCl 30 mg tablet 30 mg PO Q6H sinus problems 03/16/20 08/15/22 History guaifenesin 600 mg tablet, 600 mg PO BID PRN cough #20 tabs 08/13/22 08/15/22 Rx extended release 12 hr (Mucinex) azithromycin 250 mg tablet 250 mg PO DAILY Infection 08/15/22 08/15/22 History (Zithromax Z-Lloyd) prednisone 10 mg tablet 10 mg PO BID upper resp infection 08/15/22 08/15/22 History New Prescriptions to Start Prescriptions: Allergies Allergy/AdvReac Type Severity Reaction Status Date / Time No Known Allergies Allergy Verified 09/06/20 09:14 Exam Data for Last 24 hours Vital signs and Labs for Last 24 Hours: Temp Pulse Resp BP Pulse Ox 98.0 F 65 16 98/54 L 93 L 08/15/22 12:55 08/15/22 14:30 08/15/22 14:30 08/15/22 14:30 08/15/22 14:30 Laboratory Results - last 24 hr 08/15/22 07:02: WBC 11.1 H, RBC 4.53, Hgb 13.7, Hct 41.5, MCV 91.8, MCH 30.2, MCHC 32.9, RDW 13.3, Plt Count 312, MPV 7.5, Neut % (Auto) 76.9, Lymph % (Auto) 13.6, Wetzel % (Auto) 8.5, Eos %
[2022-08-15 15:18] LABS: Coronavirus 19, PCR Not Detected (NotDetected); Influenza A, PCR Not Detected (NotDetected); Influenza B, PCR Not Detected (NotDetected)
--- NOTE | 2022-08-15 17:03 | PC.NURSE ---
pt is a&ox4. RA. ND band on right wrist. 20g LAC. moves independently with standby assistance. bed in lowest position and call light within reach.
--- NOTE | 2022-08-15 17:59 | PC.NURSE ---
IL band removed from R wrist. radial site clean, no bleeding. covered with telfa and tegaderm. pts bed in lowest position, call light in reached. son in room.
--- NOTE | 2022-08-15 18:58 | PC.NURSE ---
Pt's home meds in the omni, pink paper filled out and magnet placed outside door
[2022-08-16] VITALS (7 sets, daily range): BP systolic 116–159; BP diastolic 65–93; PULSE 69–90; RESP 18–24; TEMP 36.6–36.8; O2SAT 95–98; BMI 22.0
--- NOTE | 2022-08-16 04:43 | PC.NURSE ---
pt. is aox 4, stand by assist, 97% on ra, right wrist with 2x2 and tegaderm c/d/i and pulse present.
--- NOTE | 2022-08-16 04:45 | PC.NURSE ---
pt is aox2, turn q two hours, on vapotherm 35L with sats in the 90's, 16f f/c in place, zero skin except for some bruising on her arms, fsbg achs, she was 91 fsbg this am, tele SR this morning, not changes noted.
--- NOTE | 2022-08-16 06:50 | PC.NURSE ---
Pt. short of breath after returning from the restroom. Audible wheezing noted and 02- 2L NC applied for comfort. Respiratory called for breathing treatment. o2 sats at 98%.
[2022-08-16 07:30] LABS: Basophils % 0.5 % (0.1-2.0); Eosinophils % 0.2 % (0.1-12.0); Hematocrit 40.9 % (37.0-47.0); Hemoglobin 13.1 g/dL (12.2-16.2); Lymphocytes # 1.8 K/mm3 (0.7-4.5); Lymphocytes % 24.4 % (10-50); Mean Corpuscular HGB Conc 32.1 g/dL (31.8-35.4); Mean Corpuscular Hemoglobin 29.6 pg (27.0-31.2); Mean Corpuscular Volume 92.2 fl (81-99); Mean Platelet Volume 7.9 fl (7.4-10.4); Monocytes # 0.9 K/mm3 (0.1-1.0); Monocytes % 12.4 % (1.7-9.3); Neutrophils # 4.6 K/mm3 (1.8-7.8); Neutrophils % 62.5 % (37.0-80.0); Platelet Count 309 K/mm3 (142-424); Red Blood Count 4.44 M/mm3 (4.20-5.40); Red Cell Distribution Width 13.5 % (11.5-17.5); White Blood Count 7.3 K/mm3 (4.8-10.8)
[2022-08-16 07:42] LABS: Alanine Aminotransferase 17 U/L (12-78); Albumin/Globulin Ratio 1.3 (1.1-1.8); Alkaline Phosphatase 77 U/L (38-126); Anion Gap 13.8 mEq/L (5-15); Aspartate Amino Transferase 29 U/L (14-36); Bilirubin,Total 0.4 mg/dl (0.2-1.3); Blood Urea Nitrogen 30 mg/dl (7-17); Calcium 8.6 mg/dl (8.4-10.2); Carbon Dioxide 29 mmol/L (22.0-30.0); Chloride 99 mmol/L (98-107); Cholesterol 173 mg/dl (140-200); Creatinine Clearance Estimated 33 mL/min (50-200); Estimated Glomerular Filt Rate 43 ml/min (>60); GFR (African American) 52 ML/MIN (>60); Glucose 95 mg/dl (74-100); Magnesium 2.6 mg/dl (1.6-2.3); Potassium 3.8 mmoL/L (3.5-5.1); Sodium 138 mmol/L (136-145); Triglycerides 79 mg/dl (30-150); VLDL Cholesterol 16 mg/dL (0-40)
[2022-08-16 07:53] LABS: Direct LDL Cholesterol 47.18 mg/dL (100-129)
[2022-08-16 07:56] LABS: Chol/HDL Ratio 1.4 (1-3.5); HDL Cholesterol 125 mg/dl (40-60)
--- NOTE | 2022-08-16 08:04 | HMH.PHAINT1 ---
Pharmacy Intervention Comments: home medications verified using list from outpatient pharmacy
--- NOTE | 2022-08-16 08:07 | XR_ITS ---
FINAL REPORT CLINICAL HISTORY: bronchitis, shortness of breath COMPARISON: 08/15/2022 FINDINGS: Two views of the chest were obtained. The heart size and pulmonary vascularity are within normal limits. The mediastinum is normal. There is hyperinflation of the lungs consistent with COPD. No acute pulmonary abnormality is identified. There is no pneumothorax. The bony thorax is intact. IMPRESSION: No active cardiopulmonary disease. Reviewed, Interpreted and Dictated by Pascual Mcdonnell III, MD Transcribed by Aydee Masters Authenticated and [facility]
[2022-08-16 08:20] LABS: Thyroid Stimulating Hormone 0.28 uIU/mL (0.465-4.68)
--- NOTE | 2022-08-16 08:28 | EXP.CARD.PN ---
Subjective Subjective Date: 08/16/22 Time: 08:28 Principal diagnosis: bronchitis, apical HOCM, type 2 NSTEMI Interval history: 82-year-old white female in bed with conversational dyspnea. Audible wheezing noted. 2 sons are also in the room and relate the patient has shortness of breath chest getting out of bed and going to the bathroom. She is on oxygen at 2 L/min by nasal cannula. Exam Data for Last 24 hours Vital signs and Labs for Last 24 Hours: Temp Pulse Resp BP Pulse Ox 98.0 F 88 24 146/93 H 98 08/16/22 07:07 08/16/22 07:07 08/16/22 07:07 08/16/22 07:07 08/16/22 07:07 Laboratory Results - last 24 hr 08/15/22 10:04: Troponin I 0.12 H 08/15/22 15:05: SARS-CoV-2 (PCR) Not detected, Influenza A Untype (PCR) Not detected, Influenza Type B (PCR) Not detected 08/16/22 07:18: WBC 7.3 D, RBC 4.44, Hgb 13.1, Hct 40.9, MCV 92.2, MCH 29.6, MCHC 32.1, RDW 13.5, Plt Count 309, MPV 7.9, Neut % (Auto) 62.5, Lymph % (Auto) 24.4, [place] % (Auto) 12.4 H, Eos % (Auto) 0.2, Baso % (Auto) 0.5, Neut # (Auto) 4.6, Lymph # (Auto) 1.8, [place] # (Auto) 0.9, Eos # (Auto) 0.0, Baso # (Auto) 0.0 08/16/22 07:18: Sodium 138, Potassium 3.8, Chloride 99, Carbon Dioxide 29, Anion Gap 13.8, BUN 30 H, Creatinine 1.20 H, Estimated Creat Clear 33, Estimated GFR 43 L, Est GFR ( Amer) 52 L, Glucose 95, Calcium 8.6, Magnesium 2.6 H, Total Bilirubin 0.4, AST 29, ALT 17, Alkaline Phosphatase 77, Total Protein 7.0, Albumin 4.0, Globulin 3.0, Albumin/Globulin Ratio 1.3, Triglycerides 79, Cholesterol 173, LDL Cholesterol Direct 47.18 L, VLDL Cholesterol 16, HDL Cholesterol 125 H, Cholesterol/HDL Ratio 1.4 I & O for Last 24 hours: Intake & Output 08/13/22 08/14/22 08/15/22 08/16/22 11:59 11:59 11:59 11:59 Intake Total 430 / 430 Output Total 0 / 0 Balance 430 / 430 Weight 120 lb 124 lb 6 oz Constitutional Constitutional: mild distress *Routine Respiratory Exam Respiratory: Present decreased breath sounds, rhonchi and wheezes *Routine Cardiovascular Exam Cardiovascular: Present RRR Progress Note: A&P Assessment and plan (1) Bronchitis: Status: Acute (2) NSTEMI (non-ST elevated myocardial infarction): Status: Acute (3) Elevated troponin: Status: Acute (4) Hypertension: Status: Chronic (5) Hypothyroidism: Status: Chronic (6) HOCM (hypertrophic obstructive cardiomyopathy): Status: Acute Assessment and Plan Assessment and Plan for All Diagnoses:: 1. Elevated troponin/type II non-STEMI secondary to bronchitis/respiratory distress in the setting of apical HOCM with mild, nonflow limiting CAD on [facility], 08/15/2022 -Tolerating medication change to verapamil and bisoprolol -Continue aspirin at 81 mg daily -Avoid Sudafed 2. Bronchitis, on antibiotic therapy -Repeat chest x-ray today -Treatment per Dr. Small 3. Hypertension, controlled -Resume Maxide therapy 4. Hypothyroidism -Continue replacement therapy Cardiac status seems stable at this time. Respiratory status treatment per Dr. Small. Cardiac Home medication recommendations: Verapamil 120 mg daily Aspirin 81 mg daily Bisoprolol 5 mg daily Maxide-25 daily Follow-up in our office in 1 to 2 weeks.
--- NOTE | 2022-08-16 09:39 | PC.NURSE ---
courtesy tech gabriel: pt is sitting on side of bed with family at bedside. call light is within reach with no further requests at this time.
--- NOTE | 2022-08-16 10:15 | EXP.DC.SUM ---
General Admission date:: 08/15/22 Discharge date: 08/16/22 HPI HPI HPI: Ms. Angela is a 82-year-old white female who presented to the ER today with complaint of shortness of breath and sinus congestion. She reports that she has been doing yard work over the past several days with increased complaint of shortness of breath and sinus congestion. Had related it to pollen. Despite taking Sudafed which is her normal to do at home, she was having consistent symptoms. Came to the ER for a breathing treatment. Chest x-ray revealed evidence of some bronchitis. Noted to have elevated troponin of 0.09, repeat 0.12. She denies any chest pain, orthopnea, palpitations. Cardiology was consulted in the ER, concern for ST segment depression in the inferior and lateral leads on EKG. Decision made to take patient to the [facility] for further assessment of her elevated troponin. Echo obtained in the ER, showing preserved ejection fraction. Patient to be admitted to medicine after heart cath. On evaluation after arriving to the floor patient is alert and oriented x3. Denies any chest pain. Stable on room air. Afebrile. Hospital Course Hospital Course Hospital Course: 82-year-old female who presented with shortness of breath, found to have NSTEMI.? Taken to [facility] with no occlusive lesions identified.? Initiated on antibiotics for bronchitis and medication to improve blood pressure control.? Did well overnight, medically stable for discharge home to complete antibiotics for bronchitis. Problems addressed as follows: Bronchitis COPD exacerbation -Stable on room air.? Goal saturation greater 90%. nitiated on azithromycin to complete course that was started as an outpatient. Resume course on discharge. We will also complete 3 more days of steroids. Recommend DuoNebs every 4-6 hours at home for shortness of breath. Nebulizer ordered through [facility]. DuoNeb sent to patient's pharmacy. Repeat chest imaging this morning showing bronchitis but no focal consolidation. Offered significant reassurance to patient and family. Spent time counseling on nebulizer administration and inhaler usage. We will also initiate on Trelegy inhaler for daily use. Patient does have a greater than [id number] history, suspect she would benefit from daily maintenance inhaler. NSTEMI -Type II with demand ischemia likely due to above diagnosis. Recommend avoiding Sudafed. Cardiology was consulted. Status post left heart cath, minor coronary artery disease, no occlusive lesions. Noted to have apical HOCUM. Cardiology recommends starting verapamil and bisoprolol. Took her first doses this morning and seemed to have slightly worse wheezing. We will hold beta-parth at this time and increase verapamil to 240 mg daily. Continue aspirin daily. Has follow-up with cardiology in 1 to 2 weeks to make further adjustments. Discontinued patient's lisinopril. Okay to resume her triamterene/HCTZ Hypothyroidism -Continue home levothyroxine 88 mcg daily. TSH well-controlled at 0.28. No changes to regimen at this time Follow-up with cardiology as discussed. Spent 40 minutes in discharge counseling and direct care with patient. Exam Data for Last 24 hours Vital signs and Labs for Last 24 Hours: Temp Pulse Resp BP Pulse Ox 98.0 F 88 24 146/93 H 95 08/16/22 07:07 08/16/22 07:07 08/16/22 07:07 08/16/22 07:07 08/16/22 08:00 Laboratory Results - last 24 hr 08/15/22 10:04: Troponin I 0.12 H 08/15/22 15:05: SARS-CoV-2 (PCR) Not detected, Influenza A Untype (PCR) Not detected, Influenza Type B (PCR) Not detected 08/16/22 07:18: TSH 0.28 L 08/16/22 07:18: WBC 7.3 D, RBC 4.44, Hgb 13.1, Hct 40.9, MCV 92.2, MCH 29.6, MCHC 32.1, RDW 13.5, Plt Count 309, MPV 7.9, Neut % (Auto) 62.5, Lymph % (Auto) 24.4, [place] % (Auto) 12.4 H, Eos % (Auto) 0.2, Baso % (Auto) 0.5, Neut # (Auto) 4.6, Lymph # (Auto) 1.8, [place] # (Auto) 0.9, Eos # (Auto) 0.0, Baso # (Auto) 0.0 08/16/22 07:18: S
--- NOTE | 2022-08-16 12:03 | HMH.PHAINT1 ---
Pharmacy Intervention Comments: Discharge medications counseling completed. Patient was starting the following medications: -Duoneb: patient and her sons explained that someone was going to bring up a nebulizer to her room and show them how to use it. Told patient of possible side effects such as headache, dizziness, or tremors after using and informed her to let her provider know if these persisted for a while after each treatment or did not go away. -Trelegy: patient was confused about the difference between this inhaler and the Duoneb. Explained to her that the Trelegy was to be used once a day, everyday and not as needed like the Duoneb. Told of possible side effects such as headache, dry mouth, or sore throat after using and informed her to let her provider know if these persisted for a while after using or did not go away. Encouraged her to rinse her mouth out after each ruse to prevent thrush. -prednisone 20 mg: a higher dose than the steroid she was taking before admission. Told patient of potential side effects of insomnia and encouraged her not to take this medication in the morning so it would not keep her awake. -verapamil: told patient she had been taking this while inpatient but at a lower dose. Told her of possible side effect of constipation and said to inform her provider if she found that she became lightheaded, especially after standing up, while taking this med. Patient had me go over the home meds she was continuing with her and verify what each medication was for. Patient was told to stop the following meds: -lisinopril: patient and sons expressed some confusion over what meds she was continuing for blood pressure control. I explained that she was to start the verapamil, continue the Diazide, and stop taking the lisinopril. -prednisone 10 mg: new prescription was sent for 20 mg rather than 10. Told patient not to resume taking the 10mg tabs if she still had some at home. Patient and loved ones verbalized understanding of which meds to start, continue, and stop.
--- NOTE | 2022-08-17 11:56 | CARE MANAGER ---
Contacted patient related to hospital discharge. She states she is feeling better. She did get all her medication and is taking them as directed. She is aware of her follow up appointments. Denies questions or concerns. BRAYAN Yee
== END 2022-08-16 12:50 | disposition home or self-care (01) ==
LOC: ER 13:07 → 2ND 14:17
PROVIDERS: Internal Medicine; Admitting Provider Internal Medicine Adolescent Medicine; Emergency Provider Emergency Medicine; PCP Nurse Practitioner Family; Visit Provider Internal Medicine Adolescent Medicine
DX: I21.4 Non-ST elevation (NSTEMI) myocardial infarction (principal); I21.A1 Myocardial infarction type 2; J20.9 Acute bronchitis, unspecified; J44.1 Chronic obstructive pulmonary disease with (acute) exacerbation; I10 Essential (primary) hypertension; E03.9 Hypothyroidism, unspecified; I42.1 Obstructive hypertrophic cardiomyopathy; Z79.899 Other long term (current) drug therapy; Z20.822 Contact with and (suspected) exposure to COVID-19; R06.9 Unspecified abnormalities of breathing
CPT/HCPCS: 36415; 71045; 71046; 80053; 80061; 82803; 83735; 84443; 84484; 85025; 87635; 87636; 93005; 93306; 93458; 94640; 99152; 99285; C1725; C1769; C9803; G0378; J0456; J1644; J3475; Q9967; U0003; U0005

== ENCOUNTER 2022-09-28 09:05 | Outpatient (CLI) | payer MEDICARE, OTHER, SELFPAY ==
[2022-09-28 09:15] VITALS: BP 136/67; PULSE 67; RESP 18; TEMP 36.4; O2SAT 99
== END 2022-09-28 09:33 | disposition home or self-care (01) ==
LOC: INF 09:06
PROVIDERS: PCP Nurse Practitioner Family; Visit Provider Nurse Practitioner Family
DX: M85.89 Other specified disorders of bone density and structure, multiple sites (principal)
CPT/HCPCS: 96372; J0897

== ENCOUNTER 2023-01-06 07:44 | Emergency (ER) | payer MEDICARE, OTHER, SELFPAY ==
[2023-01-06 07:46] VITALS: BP 104/49; PULSE 83; RESP 17; TEMP 37; O2SAT 98; BMI 24.4
--- NOTE | 2023-01-06 07:49 | HMH.EDGENADL ---
Discharge Plan Disposition Patient Disposition: Home, Self-Care Condition: Good Prescriptions Prescriptions: New Preparation H Maximum Strength 0.25-1 % cream 1 applic WI QID PRN (Reason: rectal discomfort) Qty: 26 0RF No Action triamterene-hydrochlorothiazid 37.5-25 mg tablet 1 tab PO DAILY Qty: 90 3RF metoprolol succinate [Toprol XL] 25 mg tablet extended release 24 hr 12.5 mg PO DAILY 30 Days Qty: 15 2RF calcium carbonate-vitamin D3 [Calcium 500 + D] 500 mg(1,250mg) -200 unit tablet 1 tab PO BID levothyroxine 88 mcg capsule 88 mcg PO DAILY verapamil 240 mg capsule,ext rel. pellets 24 hr 240 mg PO DAILY aspirin 325 MG tablet 325 mg PO DAILY Referrals Follow up/Referrals: Lissett Hung APRN [Primary Care Provider] - See instructions Activity Restrictions/Add. Instructions Additional Instructions/Restrictions: Please follow-up with your primary care provider. Please return to the emergency department if you develop any new or worsening symptoms or become concerned for your health. You have been given follow-up with [facility] colorectal surgery, please follow-up with them in clinic regarding this rectal prolapse. Additionally, as we discussed, recommend that you do not continue with any further Imodium as this can worsen your symptoms. If you start to experience constipation, recommend that you use a stool softener, MiraLAX as well as a high-fiber diet. It is important that you remain hydrated. If the prolapse worsens, you are unable to reduce it at home, you have increased swelling, pain and there is discoloration this would be concerning for worsening prolapse that has resulted in lack of blood flow, would be an emergency and you would need to return to the emergency department for evaluation. Clinical Impressions Clinical Impression: Partial rectal prolapse Instructions Patient Instructions: DI for Diarrhea and Traveler's Diarrhea -- Adult, DI for Rectal Prolapse Discharge ED Provider: Favio Paz I General Adult HPI General Chief complaint: Nausea/Vomiting/Diarrhea Stated complaint: Hemmoroids Time Seen by Provider: 01/06/23 07:51 History of Present Illness HPI narrative: Patient is an 82-year-old female with history of COPD, HOCM, HTN, hypothyroidism, OA, CKD presented to the emergency department with hemorrhoids. Presented to the emergency department with her son, [id number]. She reports that she has had a longstanding history of hemorrhoids, constipation. She had been straining with bowel movements up until Sunday when she had some chili to eat and subsequently had diarrhea. Patient feels that she has had worsening internal hemorrhoids, has occasionally had to push up her hemorrhoids. She is also noted some blood in the toilet and with wiping. She denies significant bloody bowel movements, does not take a blood thinner. She also denies abdominal pain, urinary incontinence although over the past several days she feels that she had difficulty urinating but was able to urinate without difficulty this morning. Denies dysuria, nausea, vomiting, fever, chills. Patient has been taking Imodium secondary to her diarrhea following use of chili, believes that her stool has slowly started to harden. She has had difficulty controlling her bowel movements. Does have a history of cystocele and pelvic floor dysfunction. Related Data Home Medications Medication Instructions Recorded Confirmed calcium carbonate 500 mg-vitamin 1 tab PO BID Supplement 09/06/17 01/06/23 D3 5 mcg (200 unit) tablet (Calcium 500 + D) levothyroxine 88 mcg capsule 88 mcg PO DAILY thyroid 09/06/17 01/06/23 aspirin 325 mg tablet 325 mg PO DAILY Heart disease 03/11/19 01/06/23 verapamil 240 mg 24 hr 240 mg PO DAILY blood pressure 09/28/22 01/06/23 capsule,extended release Previous Rx's Medication Instructions Recorded triamterene 37.5 1 tab PO DAILY High blood pressure 08/24/22
--- NOTE | 2023-01-06 08:15 | PC.NURSE ---
Dr. Paz at bs for pt eval
--- NOTE | 2023-01-06 08:37 | PC.NURSE ---
Dr. Paz and I at bedside for rectal exam.
--- NOTE | 2023-01-06 08:37 | PC.NURSE ---
MD s/w pt's family regarding care.
[2023-01-06 08:46] VITALS: BP 105/52; PULSE 85; RESP 18; TEMP 37; O2SAT 98
--- NOTE | 2023-01-06 08:57 | PC.NURSE ---
paged Dr. Cheatham for a gen surg consult.
--- NOTE | 2023-01-06 08:59 | PC.NURSE ---
Dr. Paz spoke with Dr. Cheatham at this time
--- NOTE | 2023-01-06 09:00 | PC.NURSE ---
Calling [facility] for [facility] referral
--- NOTE | 2023-01-06 09:04 | PC.NURSE ---
Dr. Paz s/w Dr. Riddle at
--- NOTE | 2023-01-06 09:12 | PC.NURSE ---
Dr. Paz at discussing POC with pt.
--- NOTE | 2023-01-06 09:27 | PC.NURSE ---
face sheet faxed to [facility] at this time
== END 2023-01-06 09:27 | disposition home or self-care (01) ==
PROVIDERS: Emergency Provider Emergency Medicine; PCP Nurse Practitioner
DX: K62.3 Rectal prolapse (principal); R19.7 Diarrhea, unspecified; J44.9 Chronic obstructive pulmonary disease, unspecified; E03.9 Hypothyroidism, unspecified; M19.09 Primary osteoarthritis, other specified site; I10 Essential (primary) hypertension; I42.1 Obstructive hypertrophic cardiomyopathy; Z87.891 Personal history of nicotine dependence
CPT/HCPCS: 99283

== ENCOUNTER → 2023-01-12 07:59 | Outpatient (CLI) | payer MEDICARE, OTHER, SELFPAY | PROVIDERS: PCP Family Medicine; Visit Provider Family Medicine | DX: R19.7 Diarrhea, unspecified (principal) | CPT/HCPCS: 87045; 87177 ==

== ENCOUNTER 2023-01-31 14:01 | Emergency (ER) | payer MEDICARE, OTHER, SELFPAY ==
[2023-01-31 14:03] VITALS: BP 138/70; PULSE 82; RESP 20; TEMP 36.6; O2SAT 98; BMI 21.0
[2023-01-31 14:09] VITALS: BP 138/70; PULSE 82; O2SAT 95
[2023-01-31 14:15] VITALS: BP 141/64; PULSE 80; O2SAT 96
[2023-01-31 14:30] VITALS: BP 125/58; PULSE 75; O2SAT 96
--- NOTE | 2023-01-31 14:34 | PC.NURSE ---
Dr. Taylor at for patient eval
--- NOTE | 2023-01-31 14:54 | HMH.EDGENADL ---
Discharge Plan Disposition Patient Disposition: Home, Self-Care Condition: Good Prescriptions Prescriptions: No Action triamterene-hydrochlorothiazid 37.5-25 mg tablet 1 tab PO DAILY Qty: 90 3RF metoprolol succinate [Toprol XL] 25 mg tablet extended release 24 hr 12.5 mg PO DAILY 30 Days Qty: 15 2RF calcium carbonate-vitamin D3 [Calcium 500 + D] 500 mg(1,250mg) -200 unit tablet 1 tab PO BID levothyroxine 88 mcg capsule 88 mcg PO DAILY verapamil 240 mg capsule,ext rel. pellets 24 hr 240 mg PO DAILY aspirin 325 MG tablet 325 mg PO DAILY Preparation H Maximum Strength 0.25-1 % cream 1 applic AL QID PRN (Reason: rectal discomfort) Qty: 26 0RF Referrals Follow up/Referrals: Provider,Referral, [Primary Care Provider] - See instructions Activity Restrictions/Add. Instructions Additional Instructions/Restrictions: You were evaluated in the emergency department today for rectal prolapse. It was able to be pushed back in. Avoid any straining. This includes lifting, bending, or pushing for bowel movements. Follow-up with your surgeon for continued management. As previously discussed, make sure you are not getting constipated. Eat a diet that keeps her bowels working normally and easily. Make an appointment with your primary care physician for reevaluation in 2 to 3 days. Please return to the emergency department if your prolapse occurs again or if you have any other new, worsening, or otherwise concerning symptoms. Clinical Impressions Clinical Impression: Partial rectal prolapse Discharge ED Provider: Cesilia Taylor Adult HPI General Chief complaint: PAIN Stated complaint: rectal pain Time Seen by Provider: 01/31/23 14:27 Mode of Arrival: Wheelchair Source of Information: Patient and Relative Limitations: hard of hearing Description of Symptoms (Recalled from ER Triage Doc. by RN): pt was seen here recently for prolapsed rectum and had it put back in place. pt has surgery scheduled at on 02/14 to correct the issue however they are here today because it fell back out and she is unable to get it in and is very uncomfortable History of Present Illness HPI narrative: This 82-year-old female with history of prior rectal prolapse, hypertension, hypothyroid presents to the emergency department with concerns of rectal prolapse again. Patient was here in early December for rectal prolapse. She has since seen a surgeon and is scheduled for February 14 for repair, but it fell out again a few days ago and she has been unable to get it back in. Patient states she has not been straining, but her son at bedside states that she has been doing some lifting such as cat litter and cases of Food. I instructed her against this. Patient has pain at the rectum and has noticed small amount of blood when she wipes, but otherwise has no other associated symptoms, no other positive review of systems. Related Data Home Medications Medication Instructions Recorded Confirmed calcium carbonate 500 mg-vitamin 1 tab PO BID Supplement 09/06/17 01/06/23 D3 5 mcg (200 unit) tablet (Calcium 500 + D) levothyroxine 88 mcg capsule 88 mcg PO DAILY thyroid 09/06/17 01/06/23 aspirin 325 mg tablet 325 mg PO DAILY Heart disease 03/11/19 01/06/23 verapamil 240 mg 24 hr 240 mg PO DAILY blood pressure 09/28/22 01/06/23 capsule,extended release Previous Rx's Medication Instructions Recorded triamterene 37.5 1 tab PO DAILY High blood pressure 08/24/22 mg-hydrochlorothiazide 25 mg tablet #90 tabs metoprolol succinate 25 mg 12.5 mg PO DAILY 30 days #15 tabs 11/27/22 tablet,extended release 24 hr (Toprol XL) phenylephrine 0.25 %-pramoxine 1 1 applic AL QID PRN rectal 01/06/23 %-glycerin-wh.petrolatum rectal discomfort #26 grams cream (Preparation H Maximum Strength) Allergies Allergy/AdvReac Type Severity Reaction Status Date / Time No Known Allergies Allergy Verified 11/27/22 09:15
[2023-01-31 15:13] VITALS: BP 122/78; PULSE 70; RESP 18; TEMP 36.7; O2SAT 99
== END 2023-01-31 15:14 | disposition home or self-care (01) ==
PROVIDERS: Emergency Provider Emergency Medicine
DX: K62.3 Rectal prolapse (principal); I10 Essential (primary) hypertension; E03.9 Hypothyroidism, unspecified
CPT/HCPCS: 99283

== ENCOUNTER 2023-03-30 08:59 | Outpatient (CLI) | payer MEDICARE, OTHER, SELFPAY ==
[2023-03-30 09:04] VITALS: BP 149/67; PULSE 75; RESP 16; O2SAT 97; BMI 21.2
[2023-03-30] MEDS: DENOSUMAB 60 MG/ML SYRINGE SQ (09:17)
== END 2023-03-30 09:20 | disposition home or self-care (01) ==
LOC: INF 09:01
PROVIDERS: PCP Nurse Practitioner Family; Visit Provider Nurse Practitioner Family
DX: M85.89 Other specified disorders of bone density and structure, multiple sites (principal)
CPT/HCPCS: 96372; J0897

== ENCOUNTER 2023-06-07 09:08 | Outpatient (CLI) | payer MEDICARE, OTHER, SELFPAY ==
--- NOTE | 2023-06-07 09:11 | CA_ITS ---
APPROVED REPORT EXAM: Comprehensive 2D, Doppler, and color-flow Echocardiogram Remote Sensing Scientist: BHARAT Bowman, RVS Ht: 5 ft 3 in Wt: 118lbs BSA: 1.54 BP: 143/69 mmHg Indications: Murmur,Mitral regurgitation, HTN, SOA 2D Dimensions Left Atrium 3.21 cm LA Volume 85.70 mL LA Volume Index 54.20 mL/m2 (M/F) 16-34 M-Mode Dimensions RVDd 2.30 cm (0.9-2.6) LA Diam 3.80 cm (1.9-4.0) LVDd 4.91 cm (3.5-5.7) LVDs 3.52 cm (3.5-5.7) IVSd 1.04 cm (0.6-1.1) PWd 0.72 cm (0.6-1.1) EF (Teich) 54.50% EPSs 0.93 cm FS 28.30% EDV (Teich) 113.40 mL TAPSE 1.41 (<1.7) ESV (Teich) 51.60 mL LV Diastology E Decel Time 210 (160-240 msec) E/A Ratio 1.21 MED A' 8.30 cm/s LAT A' 6.50 cm/s Pulm Vein s 43.00 cm/sec Ar-A Duration 73.00 msec Aortic Valve MOHSEN Index 1.08 cm2/m2 AoV Peak Baldomreo. 105.0 (50-130 cm/s) AI PHT 516.00 ms AO Peak GR. 4.40 mmHg AO Mean GR. 2.20 (<5 mmHg) AO VTI 24.5 (18-25 cm) MOHSEN (VTI) 1.70 (2.5-4.5 cm2) Mitral Valve MV A Velocity 59.0 (40-130 cm/s) E/A Ratio 1.21 MV Mean Gr. 1.30 (<2mmHg) Pulmonary Valve PV Peak Velocity 63.0 (50-150 cm/s) CO End VMAX 167.0 cm/s Tricuspid Valve TR P. Velocity 239.00 cm/s RAP Estimate 10.00 mmHg RVSP 32.90 mmHg Left Ventricle The left ventricle is normal size. The left ventricular systolic function is normal. The left ventricular ejection fraction is within the normal range. There is normal left ventricular wall thickness. There is normal LV segmental wall motion. The left ventricular diastolic function is normal. LVEF is 55%. Right Ventricle Right ventricle is mildly dilated. The right ventricular systolic function is normal. Atria Left atrium is mildly dilated. Right atrium is mildly dilated. There is no Doppler evidence of interatrial shunt. Aortic Valve The aortic valve is mildly thickened. There is no aortic valvular stenosis. Mild aortic regurgitation. Mitral Valve The mitral valve is normal in structure. No evidence of mitral valve stenosis. Mild to moderate mitral regurgitation. Tricuspid Valve The tricuspid valve leaflets are thin and pliable. Mild tricuspid regurgitation. RVSP is 20-25 mmHg. Pulmonic Valve The pulmonary valve is normal in structure. Mild pulmonic regurgitation. Great Vessels The aortic root is normal in size. The ascending aorta is normal in size. IVC is normal in size and collapses >50% with inspiration. Pericardium There is no pericardial effusion. Other Information Study Quality: Fair Conclusion Normal biventricular systolic function. Mild RV dilation. Biatrial dilation. Mild AI, mild TR, mild CO. Mild to moderate MR. Electronically signed by : Michelle Serrano MD 06/10/2023 20:30:45
== END 2023-06-07 23:59 ==
PROVIDERS: PCP Nurse Practitioner; Visit Provider Physician Assistant
DX: I42.1 Obstructive hypertrophic cardiomyopathy (principal); I34.0 Nonrheumatic mitral (valve) insufficiency
CPT/HCPCS: 93306

== ENCOUNTER 2023-10-08 08:59 | Outpatient (CLI) | payer MEDICARE, OTHER, SELFPAY ==
[2023-10-08] MEDS: DENOSUMAB 60 MG/ML SYRINGE SQ (09:11)
[2023-10-08 09:15] VITALS: BP 138/54; PULSE 72; RESP 18; TEMP 36.8; O2SAT 99
== END 2023-10-08 09:23 | disposition home or self-care (01) ==
LOC: INF 09:01
PROVIDERS: PCP Nurse Practitioner; Visit Provider Nurse Practitioner
DX: M81.0 Age-related osteoporosis without current pathological fracture (principal); Z79.899 Other long term (current) drug therapy
CPT/HCPCS: 96372; J0897

== ENCOUNTER 2024-04-16 09:09 | Outpatient (CLI) | payer MEDICARE, OTHER, SELFPAY ==
[2024-04-16 09:35] VITALS: BP 146/61; PULSE 108; RESP 18; O2SAT 96
[2024-04-16] MEDS: DENOSUMAB 60 MG/ML SYRINGE SUBCUT (09:35)
== END 2024-04-16 09:50 | disposition home or self-care (01) ==
LOC: INF 09:10
PROVIDERS: PCP Nurse Practitioner; Visit Provider Nurse Practitioner
DX: M81.0 Age-related osteoporosis without current pathological fracture (principal)
CPT/HCPCS: 96372; 96401; J0897

== ENCOUNTER 2024-06-19 10:32 | Outpatient (CLI) | payer MEDICARE, OTHER, SELFPAY ==
[2024-06-19 11:02] LABS: Basophils # 0.1 K/mm3 (0-0.2); Basophils % 1.4 % (0.1-2.0); Eosinophils # 0.3 K/mm3 (0.0-0.4); Eosinophils % 4.5 % (0.1-12.0); Hematocrit 37.9 % (37.0-47.0); Hemoglobin 12.5 g/dL (12.2-16.2); Lymphocytes # 1.2 K/mm3 (0.7-4.5); Lymphocytes % 21.9 % (10-50); Mean Corpuscular Hemoglobin 29.4 pg (27.0-31.2); Mean Corpuscular Volume 89.2 fl (81-99); Mean Platelet Volume 9.1 fl (7.4-10.4); Monocytes # 0.5 K/mm3 (0.1-1.0); Monocytes % 9.3 % (1.7-9.3); Neutrophils # 3.5 K/mm3 (1.8-7.8); Neutrophils % 62.7 % (37.0-80.0); Platelet Count 262 K/mm3 (142-424); Red Blood Count 4.25 M/mm3 (4.20-5.40); Red Cell Distribution Width 13.2 % (11.5-17.5); White Blood Count 5.6 K/mm3 (4.8-10.8)
[2024-06-19 11:37] LABS: Alanine Aminotransferase 13 U/L (12-78); Albumin Level 4.2 g/dl (3.5-5.0); Alkaline Phosphatase 48 U/L (38-126); Anion Gap 8.2 mEq/L (5-15); Aspartate Amino Transferase 22 U/L (14-36); Bilirubin,Direct 0.2 mg/dl (0.0-0.4); Bilirubin,Indirect 0.2 mg/dL (0.0-0.9); Bilirubin,Total 0.4 mg/dl (0.2-1.3); Bilirubin,Unconjugated 0.2 mg/dL (0.0-1.1); Blood Urea Nitrogen 24 mg/dl (7-17); Calcium 9.7 mg/dl (8.4-10.2); Carbon Dioxide 28 mmol/L (22.0-30.0); Chloride 103 mmol/L (98-107); Chol/HDL Ratio 1.9 (1-3.5); Cholesterol 158 mg/dl (140-200); Estimated Glomerular Filt Rate 43 ml/min (>60); GFR (African American) 52 ML/MIN (>60); Glucose 91 mg/dl (74-100); HDL Cholesterol 83 mg/dl (40-60); Potassium 4.2 mmoL/L (3.5-5.1); Sodium 135 mmol/L (136-145); Total Protein,Serum 6.4 g/dl (6.3-8.2); Triglycerides 94 mg/dl (30-150); VLDL Cholesterol 19 mg/dL (0-40)
[2024-06-19 11:47] LABS: Direct LDL Cholesterol 54.05 mg/dL (100-129)
[2024-06-19 11:51] LABS: Free T4 (Free Thyroxine) 2.09 ng/dl (0.78-2.19)
[2024-06-19 12:06] LABS: Thyroid Stimulating Hormone 0.72 uIU/mL (0.465-4.68)
== END 2024-06-19 23:59 | disposition home or self-care (01) ==
LOC: LAB 10:33
PROVIDERS: PCP Nurse Practitioner; Visit Provider Nurse Practitioner
DX: E03.9 Hypothyroidism, unspecified (principal); I10 Essential (primary) hypertension; I34.0 Nonrheumatic mitral (valve) insufficiency; D50.9 Iron deficiency anemia, unspecified
CPT/HCPCS: 36415; 80048; 80061; 80076; 84439; 84443; 85025

== ENCOUNTER 2024-10-15 09:11 | Outpatient (CLI) | payer MEDICARE, OTHER, SELFPAY ==
--- OUTSIDE RECORDS SUMMARY | 2024-10-15 09:16 | XMS_ITS | Clinical Summary ---
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 3 Active levothyroxine (Synthroid, Levoxyl) 88 MCG tablet Take 1 tablet (88 mcg) by mouth 1 (one) time each day before breakfast. 3 Active verapamil ER (Veralan PM) 240 MG 24 hr capsule Take 1 capsule (240 mg) by mouth every night. 3 Active metoprolol succinate XL (Toprol-XL) 25 MG 24 hr tablet Take 0.5 tablets (12.5 mg) by mouth 1 (one) time each day. 3 Active diphenoxylate-at ropine (Lomotil) 2.5-0.025 MG tablet Take 1 tablet by mouth 3 (three) times a day if needed for diarrhea. 3 Active hydrOXYzine HCl (Atarax) 25 MG tablet Take 1 tablet (25 mg) by mouth if needed for itching. 3 Active calcium carbonate (Tums) 500 MG chewable tablet Chew 1 tablet (500 mg) 2 (two) times a day. Active hydrocortisone (Anusol-HC) 2.5 % rectal cream Insert 1 Application into the rectum if needed for hemorrhoids. Active neomycin (Mycifradin) 500 MG tablet Take two tablets (1000 mg) by mouth at 1:00pm, 2:00pm and 11:00pm on the day prior to surgery. SSICOLON 6 tablet 3 Active Additional Information Patient not taking.Reported on 03/13/2023 metroNIDAZOLE (Flagyl) 500 MG tablet Take one tablet at 1pm, 2pm, and 11pm day BEFORE surgery. SSI COLON. 3 tablet 3 Active Nutritional Supplements (Impact Advanced Recovery) liquid Drink 2 cartons a day starting 5 days before surgery. SSICOLON. Auto Sub for Ensure Surgery if Impact not available. 250 mL 3 Active Additional Information Patient not taking.Reported on 03/13/2023 bisacodyl (Dulcolax) 5 MG EC tablet Day before procedure at 4pm take 4 tablets with 8 oz of clear liquid. SSICOLON 4 tablet 3 Active polyethylene glycol (MiraLax) 17 GM/SCOOP powder At 6pm day BEFORE surgery, mix Miralax (polyethylene glycol) powder with 64 oz sports drink. Stir to dissolve. Drink one cup (8oz) every 15 minutes until completed finished. SSICOLON 238 g 3 Active Additional Information Patient not taking.Reported on 03/13/2023 Denosumab (PROLIA SC) Inject under the skin. Last injection August 2022, next one 03/24 Active aspirin 81 MG EC tablet Take 1 tablet (81 mg) by mouth 1 (one) time each day. Active Active Problems Problem Noted Date Diagnosed Date Rectal prolapse 01/16/2023 Family History Medical History Relation Name Comments Heart attack Father Arthritis Mother Anesthesia problems Neg Hx Malig Hyperthermia Neg Hx Relation Name Status Comments Father Mother Social History Tobacco Use Types Packs/Day Years Used Date Smoking Tobacco: Former Cigarettes 2017 Smokeless Tobacco: Never Alcohol Use Standard Drinks/Week Comments Never 0 (1 standard drink = 0.6 oz pur e alcohol) Humiliation, Afraid, Rape, and Kick questionnair e Answer Date Recorded Within the last year, have y ou been afraid of your partner or ex-partner? No 02/15/2023 Within the last year, have y ou been humiliated or emotionally abused in other ways by your partner or ex-partner? No Within the last year, have y ou been kicked, hit, slapped, or otherwise physically hurt by your partner or ex-partner? No 02/15/2023 Within the last year, have y ou been raped or forced to have any kind of sexual activity by your partner or ex-partner? No 02/15/2023 PHQ-2 Answer Date Recorded Patient Health Questionnaire-2 Score 0 03/13/2023 Hunger Vital Sign Answer Date Recorded Within the past 12 months, y ou worried that your food would run out before you got the money to buy more. Never true 02/16/20 23 Within the past 12 months, t he food you bought just didn't last and you didn't have money to get more. Never true 02/15/2023 PRAPARE - Transportation Answer Date Re corded In the past 12 months, has l ack of transportation kept you from medical appointments or from getting medications? No 01/31 In the past 12 months, has l ack of transportation kept you from meetings, work, or from getting things needed for daily living? No 02/15/2023 Housing Stability Vital Sign Answer Alli e Recorded In the last 12 months, was t here a time when you were not able to pay the mortgage or rent on time? No 02/15/2023 [address] of Places Lived in the Last Year Not on f ile 02/15/2023 In the last 12 months, was t here a time when you did not have a steady place to sleep or slept in a [place] [facility] [place] (including now)? No 02/15/2023 CAGE ASSESSMENT Answer Date Recorded Cage unable to access Not on file 02/14/2023 Cage max number of drinks Not on file 2022 Cage Beverages a week Not on file 02/14/2023 Have you ever felt you should CUT down on your d rinking? 0 02/14/2023 Have you been ANNOYED by people criticizing your drinking? 0 02/14/2023 Have you felt GUILTY about your drinking? 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 0 02/14/2023 CAGE Questionnaire Score 0 023 Utilities Answer Date Recorded In the past 12 months has th e electric, gas, oil, or water company threatened to shut off services in your home? No 02/15/2023 PHQ-2A Answer Date Recorded Patient Health Questionnaire-2 Score 0 03/13/2023 Comments No Sex and Gender Information Value Date Recorded Sex Assigned at Female 01/16/2023 11:01 PM EDT Legal Sex Female 11:59 AM EDT Gender Identity Female 01/16/2023 11:01 PM EDT Sexual Orientation Straight 01/16/2023 11 :01 PM EDT Last Filed Vital Signs Vital Sign Reading Time Taken Comments Blood Pressure 114/72 03/13/2023 12:55 PM EST Pulse 79 03/13/2023 12:55 PM EST Temperature 36.2 C (97.1 F) 03/13/2023 12:55 PM EST Respiratory Rate 17 02/16/2023 11:3 4 AM EST Oxygen Saturation 96% 02/16/2023 11: 34 AM EST Inhaled Oxygen Concentration - - Weight 52.9 kg (116 lb 11.2 oz) 023 12:55 PM EST Height 155 cm (5' 1.02 ) 03/13/2023 12: 55 PM EST Body Mass Index 22.03 03/13/2023 12:55 PM EST Plan of Treatment Health Maintenance Due Date Last Done Comments [facility]-Bone Density Scan 1941 [facility]-Medicare Annual Wellness (AWV) 1941 [facility]-Infant/Child/Adol SDOH Screenings 1941 [facility]- SDOH Screenings 1959 [facility]-Adult SDOH Screenings 1959 [facility]-Pneumococcal Vaccine: 50 + Years (1 of 1 - PCV) 1991 [facility]-Zoster Vaccines (1 of 2) 1991 [facility]-RSV Vaccine: 60+ Years o r (1 - 1-dose 75+ series) 02/14/2016 [id number] Vaccine (2 - Ja nssen risk series) 08/04/2020 07/07/2020 [facility]-Depression Screening 03/13/2024 03/13/2023 [facility]-Influenza Vaccine (#1) 2024 [facility]-DTaP,Tdap,and Td Vaccine s (2 - Td or Tdap) 01/29/2031 01/29/2021 HPV Vaccines Aged Out No longer eligi ble based on patient's age to complete this topic [facility]-HIB Vaccines Aged Out No longer e ligible based on patient's age to complete this topic [facility]-Hepatitis A Vaccines Aged Out No longer eligible based on patient's age to complete this topic [facility]-IPV Vaccines Aged Out No longer e ligible based on patient's age to complete this topic [facility]-Rotavirus Vaccines Aged Out No lo nger eligible based on patient's age to complete this topic Insurance [employer]ICARE Advance Directives * Full Code (Latest Code Status on File) Date Activated Date Inactivated Comments 02/14/2023 1:31 PM 02/16/2023 1:44 PM Question Answer Comments Patient has decision-making capacity? 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
--- OUTSIDE RECORDS SUMMARY | 2024-10-15 09:16 | XMS_ITS ---
Author Organization Unknown [facility] Start Date Provider Encounter for Check-up [id number] MARCELLA Mitchell
[2024-10-15] MEDS: DENOSUMAB 60 MG/ML SYRINGE SUBCUT (09:23)
[2024-10-15 09:28] VITALS: BP 146/58; PULSE 86; RESP 18; TEMP 37; O2SAT 98
== END 2024-10-15 09:33 | disposition home or self-care (01) ==
LOC: INF 09:14
PROVIDERS: PCP Family Medicine; Visit Provider Family Medicine
DX: M81.0 Age-related osteoporosis without current pathological fracture (principal)
CPT/HCPCS: 96372; J0897